=== PATIENT | male | born 1950 | race Caucasian/White ===

== ENCOUNTER 2018-10-16 12:17 | Outpatient (REF) | payer MEDICARE, SELFPAY ==
[2018-10-16 19:48] LABS: HGB 15.1 g/dL (13.5-17.5); Mean Corp. HGB Concentration 32.8 g/dL (32.0-36.0); Mean Corpuscular Hemoglobin 31.2 pg (27.0-33.0); Mean Platelet Volume 12.6 fL (8.0-11.0); Platelet Count 110 x1000/uL (130-400); RBC 4.84 m/cumm (4.50-6.00); RBC Distribution Width 13.6 % (11.8-14.1); White Blood Cell Count 6.09 k/cumm (4.4-10.8)
[2018-10-16 20:39] LABS: Cholesterol 250 mg/dL (50-200); HDL Cholesterol 86 mg/dL (40-60); LDL CHOLESTEROL 141 mg/dL (<100); Triglyceride 74 mg/dL (30-150)
[2018-10-18 09:14] LABS: PSA, Screening 1.5 ng/ml (0-4.5)
== END 2018-10-16 12:37 ==
LOC: NCHCN 12:17
PROVIDERS: PCP Family Medicine; Visit Provider Family Medicine
DX: E78.5 Hyperlipidemia, unspecified (principal); D69.6 Thrombocytopenia, unspecified; Z12.5 Encounter for screening for malignant neoplasm of prostate
CPT/HCPCS: 80061; 83721; 84153; 85027

== ENCOUNTER → 2019-04-14 09:28 | Outpatient (BNVA) | payer MEDICARE, SELFPAY | PROVIDERS: PCP Family Medicine; Referring Provider Family Medicine; Visit Provider Physical Therapy Assistant | DX: Z12.11 Encounter for screening for malignant neoplasm of colon (principal) ==

== ENCOUNTER 2019-05-15 12:11 | Day surgery (SDC) | payer MEDICARE, SELFPAY ==
[2019-05-15 12:26] VITALS: BP 143/93; PULSE 75; RESP 16; TEMP 36.8; O2SAT 99
[2019-05-15] MEDS: Lactated Ringers 1,000 ML 80 ML IV (12:35)
--- NOTE | 2019-05-15 13:07 | W.PM.DSUDISC ---
Discharge Plan Disposition Patient Disposition: HOME Condition: Good Discharge Details Reason For Visit: Colonoscopy Attending Provider: Deirdre Parod Primary Care Provider: Elfego Griggs Home Meds and New Rx's Prescriptions: Continued ibuprofen 200 MG tablet 400 mg PO PRNRF: 0 Discharge Instructions Additional Instructions: Findings: Two small polyps were removed. My office will contact you with biopsy results. Follow up: Plan for a colonoscopy in 5 years. Please call if you develop: fevers >101.5 Nausea or Vomiting Abdominal pain that is not transient DAY SURGERY UNIT POST COLONOSCOPY INSTRUCTIONS 1. Because there will be medication in your system for the next 24 hours, you may feel a little sleepy. Your coordination will be affected. Therefore: a. Do not drive or operate dangerous equipment for 24 hours. b. Do not drink alcohol beverages for 24 hours (not even beer). c. Plan to go home and rest for the day. 2. Generally there are no restrictions on your activity after a day or so has gone by, but you may feel a bit fatigued for a few days. 3 After you arrive home you may have a light meal and return to a normal diet as you can tolerate it without feeling sick to your stomach. 4. After surgery, you may feel pain or discomfort. This should be only transient, but if it persists please contact your doctor. 5. If there are any questions regarding the findings of your procedure, please feel free to contact your doctor. 6. If you are unable to contact your doctor with a problem, contact the hospital at [phone]. 7. Continue all your regular medications unless directed otherwise. I understand the above instructions and have no questions. Signature of Patient or Responsible Adult Escort Date/Time Name of Responsible Adult Escort Signature of Nurse Date/Time Activity:: Activity as Tolerated Diet:: As Tolerated Discharge Orders Discharge Orders: Discharge Order (Routine); Ordered 05/15/19 Ordered By: Deirdre Pardo DS: Diagnosis Discharge Diagnosis (1) Colon polyps: Status: Acute
--- NOTE | 2019-05-15 13:37 | BOWEL_PTH ---
PATIENT: Feliciano Acosta LOC: [facility] U#:[id number] AGE/SX: 69/M ROOM: RE05/15/[address]: Deirdre Pardo MD : [id number] BED: DIS: 05/15/2019 SPEC #: [id number] RECD: 05/15/19 17:56 STATUS: ALVARO RE #: [id number] HARRY: 05/15/19 13:[address]: Deirdre Pardo DEPT: Surgical Specimen RECD BY: Emely Piper ENTERED: 05/15/19 17:57 SP TYPE: Bowel OTHR DR: Elfego Griggs Tissues: 1 - BIOPSY BOWEL 2 - BIOPSY BOWEL Procedures: GROSS AND MICRO LEVEL 4 Comments: [id number]
[2019-05-15 14:41] VITALS: BP 113/67; PULSE 56; RESP 16; TEMP 36.6; O2SAT 97
--- NOTE | 2019-05-16 10:17 | COLE_ITS ---
DATE OF PROCEDURE: May 15, 2019 PREOPERATIVE DIAGNOSIS: History of colon polyps. POSTOPERATIVE DIAGNOSIS: Colon polyps x2. PROCEDURE: Colonoscopy with polypectomy. SURGEON: Deirdre Pardo M.D. ANESTHESIA: General. INDICATIONS: This is a 69-year-old man who presents for routine colon evaluation. His last procedur e in 2006 showed a polyp. His history is also significant for a sigmoid resection for a perforated d iverticulitis with a colostomy and a subsequent takedown. He denies a family history of colon cancer . PROCEDURE: He was placed in the left [place] position. Propofol was titrated to sedation. Digital rec marifer examination revealed no abnormalities. The scope was advanced to the cecum without difficulty. The ileocecal valve and appendiceal orifice were clearly identified. His prep was good. The scope w as slowly withdrawn with no abnormalities seen within the ascending or transverse colon. At the sple shruthi flexure there was a < 1 cm polyp that was removed with snare polypectomy and retrieved for pathol ogy. No abnormalities were noted throughout the descending colon. At the anastomosis of the sigmoid colon with the rectum there was a < 1 cm polyp located along the anastomotic area. This was removed with snare polypectomy and retrieved. This was labeled as a sigmoid polyp. The rectum was normal, including on retroflex view. He tolerated the procedure well and was stable to recovery. He will need a follow-up colonoscopy again in 5 years. cc: Elfego Griggs M.D.
== END 2019-05-15 14:50 | disposition home or self-care (01) ==
PROVIDERS: PCP Family Medicine; Visit Provider Surgery
PROC: 0DJD8ZZ Inspection of Lower Intestinal Tract, Via Natural or Artificial Opening Endoscopic (ICD-10-PCS; CPT 45378; principal; 2019-05-15 12:45)
DX: Z12.11 Encounter for screening for malignant neoplasm of colon (principal); D12.3 Benign neoplasm of transverse colon; D12.5 Benign neoplasm of sigmoid colon; Z86.010 Personal history of colon polyps; Z90.49 Acquired absence of other specified parts of digestive tract
CPT/HCPCS: 45385; 88305

== ENCOUNTER 2020-08-16 22:09 | Outpatient (REF) | payer MEDICARE, SELFPAY ==
[2020-08-16 19:17] LABS: Calculated LDL 141 mg/dL (<100); Cholesterol 244 mg/dL (<200); HDL Cholesterol 83 mg/dL (40-60); Triglyceride 101 mg/dL (<150)
[2020-08-17 18:02] LABS: PSA, Diagnostic 1.6 ng/mL (0.0-4.5)
== END 2020-08-16 22:29 ==
LOC: NCHCN 22:09
PROVIDERS: PCP Family Medicine; Visit Provider Family Medicine
DX: E78.5 Hyperlipidemia, unspecified (principal); Z12.9 Encounter for screening for malignant neoplasm, site unspecified; E04.1 Nontoxic single thyroid nodule
CPT/HCPCS: 80061; 84153

== ENCOUNTER 2020-09-07 01:15 | Outpatient (CLI) | payer MEDICARE, SELFPAY ==
--- NOTE | 2020-09-07 | DI.US_ITS ---
EXAM: US THYROID CLINICAL HISTORY: F/U THYROID NODULE,E04.1. TECHNIQUE: Ultrasound thyroid performed using standard protocol. COMPARISON: US USTHY from 12/16/2014 FINDINGS: This study is compared to prior outside study performed December 2014 RIGHT THYROID LOBE: Measures 2 centimetres AP by 2.3 centimeters wide by 6.3 centimeters craniocaudal length. At the mid aspect of the right lobe there is a 10 x 6 x 7 millimeter nodule which is somewhat spongif orm in appearance with well-defined margins and 3 tiny punctate echogenic foci therein. The longitud inal measurement is slightly increased in size from the prior outside 2015 study. Second finding in the right lobe is located more medially at the junction with the isthmus and is a 6 x 3 x 4 millimeters solid nodule which is relatively hypoechoic compared to the surrounding parenchy ma, with well-defined margins and no echogenic foci is a therein.. This is slightly increased in siz e from the study of 5 years ago. ISTHMUS: Measures 3 millimeter thick. No significant nodules. LEFT THYROID LOBE: Measures 1.8 cm AP by 3 centimeters wide by 5.9 cm cephalocaudal. Contains 2 chung cent midpole level nodules. More superior of these 2 solid nodules measures 10 x 8 x 9 millimeters. Is hypoechoic relative to good rrounding parenchyma and exhibits smooth borders and no internal echogenic foci. Exhibits similar ap pearance and size compared to the 2014 study. The more inferior of these 2 adjacent solid left lobe nodules is well-defined and relatively isoechoi c compared to the surrounding parenchyma and contains multiple punctate echogenic foci therein. It m easures 15 x 8 x 16 millimeters, minimally increased in size from prior outside readings of 2014. IMPRESSION: Bilateral solid nodules as described above which exhibit mild increased size when compared to the out side study of December 2014 (over 5 years ago). All of the nodules are in the TR4 category with an element of suspicion, however, exhibit only minima l change when compared to 5 years ago. I recommend repeat ultrasound in 6 months at this department using the present study and measurements as a new baseline. DATA REPOSITORY:
== END 2020-09-07 01:35 ==
PROVIDERS: PCP Family Medicine; Visit Provider Family Medicine
DX: E04.2 Nontoxic multinodular goiter (principal)
CPT/HCPCS: 76536

== ENCOUNTER 2021-11-08 18:46 | Outpatient (REF) | payer MEDICARE, SELFPAY ==
[2021-11-08 20:47] LABS: ALT 33 U/L (16-63); AST 27 U/L (15-37); Albumin 4.7 g/dL (3.4-5.0); Alkaline Phosphatase 56 U/L (46-116); Anion Gap 9.1 mmol/L (3-11); BUN 14 mg/dL (7-18); Bilirubin, Total 0.9 mg/dL (0.2-1.0); CO2 27.9 mmol/L (21.0-32.0); Calcium 9.4 mg/dL (8.5-10.1); Calculated LDL 134 mg/dL (<100); Chloride 101 mmol/L (98-107); Cholesterol 241 mg/dL (<200); Glucose 86 mg/dL (74-106); HDL Cholesterol 87 mg/dL (40-60); Magnesium 2.4 mg/dL (1.8-2.4); Potassium 3.9 mmol/L (3.5-5.1); Sodium 138 mmol/L (136-145); TSH (W/Ref FT4) 0.97 uIU/mL (0.36-3.74); Total Protein 8.2 g/dL (6.4-8.2); Triglyceride 102 mg/dL (<150); Vitamin B12 304 pg/mL (193-986)
[2021-11-09 18:26] LABS: PSA, Screening 2.4 ng/mL (0.0-4.5)
[2021-11-10 10:09] LABS: Hepatitis C Ab w Rflx HCV PCR Negative (Negative)
[2021-11-10 10:18] LABS: HIV-1/2 Ag & Ab Screen Negative (Negative)
== END 2021-11-08 18:47 | disposition home or self-care (01) ==
LOC: NCHCN 18:46
PROVIDERS: PCP Family Medicine; Visit Provider Family Medicine
DX: D69.6 Thrombocytopenia, unspecified (principal); R25.2 Cramp and spasm; Z11.4 Encounter for screening for human immunodeficiency virus [HIV]; Z12.5 Encounter for screening for malignant neoplasm of prostate; Z80.42 Family history of malignant neoplasm of prostate; Z11.59 Encounter for screening for other viral diseases; E78.5 Hyperlipidemia, unspecified
CPT/HCPCS: 80053; 80061; 84153; 85027; 86803; 87389; 82607; 83735; 84443

== ENCOUNTER 2021-11-17 18:11 | Outpatient (REF) | payer MEDICARE, SELFPAY ==
[2021-11-17 14:20] LABS: HCT 45.3 % (40.0-50.0); MCH 31.3 pg (27.0-33.0); MCHC 33.1 % (32.0-36.0); MCV 94.4 fL (80-95); RDW 13.2 % (11.8-14.1); RDW-SD 45.8 fL; WBC 4.28 10^3/uL (4.4-10.8)
[2021-11-17 14:23] LABS: Platelet Count 113 10^3/uL (130-400)
== END 2021-11-17 18:12 | disposition home or self-care (01) ==
LOC: NCHCN 18:11
PROVIDERS: PCP Family Medicine; Visit Provider Family Medicine
DX: D69.6 Thrombocytopenia, unspecified (principal)
CPT/HCPCS: 85027

== ENCOUNTER 2021-12-01 11:02 | Inpatient (IN) | payer MEDICARE, SELFPAY ==
[2021-12-01 11:19] VITALS: BP 145/88; PULSE 68; RESP 16; TEMP 36; O2SAT 99
[2021-12-01 11:30] VITALS: BP 163/91; PULSE 61
[2021-12-01 11:36] LABS: Bilirubin Negative (Negative); Blood Small (Negative); Clarity Clear (Clear); Glucose Negative (Negative); Ketones Negative (Negative); Leukocyte Esterase Negative (Negative); Nitrite Negative (Negative); Urobilinogen 0.2 EU/dL (Up TO 0.2); pH 7.5 (5-8)
[2021-12-01 11:45] LABS: Bacteria Rare HPF (Negative); C & S Indicated? No; Casts Negative LPF (Negative); Crystals Negative HPF (Negative); Epithelial Cells Rare HPF (Negative); Mucus Negative (Negative); WBC 0-2 HPF (0-5)
--- NOTE | 2021-12-01 11:45 | DI.CT_ITS ---
Exam(s) CT ABDOMEN PELVIS WO EXAM: CT ABDOMEN PELVIS WO CLINICAL HISTORY: pain rt flank. TECHNIQUE: Imaging Protocol: Axial computed tomography images with coronal and sagittal reformatted images were created and reviewed. COMPARISON: CT ABD PELVIS WITH CONTRAST from 03/07/2016 FINDINGS: The examination is limited due to patient motion artifact. ABDOMEN: Lung Bases: Normal where visualized. Liver: Normal density. No measurable mass. Gallbladder and biliary tract: No radiodense calculus or biliary ductal dilation. Pancreas: Normal density, no abnormal calcifications or inflammatory process. Spleen: Multiple calcifications are again seen in the spleen consistent with prior granulomatous dise ase. Kidneys: Normal size, contour and axis.There are 2 punctate nonobstructing stones in the left kidney. There is right nephrolithiasis. There is a 6 mm stone at the right ureteral vesicular junction cau sing moderate hydronephrosis. No masses seen. Adrenal glands: There is a stable 1.2 cm nodule in the left adrenal gland. The right adrenal gland i s unremarkable. Lymph nodes: Within normal limits. Abdominal Aorta: Abdominal portion non-dilated. Atherosclerosis is present. PELVIS: Bladder:Symmetric distention, no gross wall thickening. Bowel: No obstruction or bowel wall thickening. Appendix is unremarkable. Postsurgical changes are s een in the sigmoid colon. Peritoneal cavity: No ascites, collection or mesenteric inflammatory response. No free air. Reproductive organs: There is mild enlargement of the prostate gland. Bones: Within normal limits. Soft Tissues: Within normal limits. IMPRESSION: 1. 6 mm right UVJ stone causing moderate hydronephrosis. 2. Bilateral nephrolithiasis. 3. Results of this exam have been verbally communicated with provider. RADIATION DOSE DELIVERED: 811.69mGy.cm Total DLP DATA REPOSITORY: All CT scans at this facility are submitted to the National Radiology Data Registry (NRDR) Dose Index Registry (DIR) with the [employer] (ACR). RADIATION OPTIMIZATION: All CT scans at this facility use at least one of these dose optimization te chniques: automated exposure control; mA and/or kV adjustment per patient size (includes targeted exa ms where dose is matched to clinical indication); or iterative reconstruction.
[2021-12-01 11:55] LABS: Abs Immature Grans 0.05 10^3/uL (0.0-0.06); Absolute Lymphocyte Count 1.16 10^3/uL (1.2-3.4); Basophils % 0.2; Eosinophils % 0.2; HCT 43.9 % (40.0-50.0); HGB 14.7 g/dL (13.5-17.5); Immature Grans % 0.4; Lymphocytes % 9.4; MCH 31.1 pg (27.0-33.0); MCHC 33.5 % (32.0-36.0); MCV 92.8 fL (80-95); Monocytes % 6.8; Nucleated RBC 0 %; RBC 4.73 10^6/uL (4.36-5.78); RDW 13.2 % (11.8-14.1); RDW-SD 45.2 fL; WBC 12.29 10^3/uL (4.4-10.8)
[2021-12-01 12:01] LABS: Absolute Basophil Count 0.02 10^3/uL (0.0-0.2); Absolute Eosinophil Count 0.02 10^3/uL (0.0-0.7); Absolute Monocyte Count 0.84 10^3/uL (0.1-0.8)
[2021-12-01 12:04] LABS: Diff Comment Diff Reviewed; RBC Morphology Normal
[2021-12-01] MEDS: HYDROmorphone 2 MG/ML VIAL 1 MG IVP (12:07)
[2021-12-01] MEDS: Ketorolac 15 MG/ML VIAL IVP ×3 (12:08→23:35)
[2021-12-01] MEDS: Lactated Ringers 1,000 ML 150 ML IV (12:11)
[2021-12-01 12:16] VITALS: BP 132/78; PULSE 56; O2SAT 98
--- NOTE | 2021-12-01 12:21 | ED.GENADUL_ITS ---
Discharge Plan Disposition Patient Disposition: [facility] INPATIENT Condition: Serious Discharge Details Clinical Impression: Ureterolithiasis Primary Care Provider: Elfego Griggs ED Provider: Dhaval Almodovar Home Meds and New Rx's Prescriptions: No Action ibuprofen 200 MG tablet 400 mg PO QID PRN PRN0RF oxycodone 5 mg tablet 5 mg PO .Q4HRS PRN0RF Label Comments: TAKE 1 TABLET BY MOUTH EVERY 4 HOURS NEEDED FOR PAIN Medical Decision Making 71-year-old male with recently diagnosed right UVJ stone seen on CT scan 11/25/2021 at outside hospital, presenting with severe sudden onset right flank pain since early this morning. Patient is afebrile and hemodynamic stable. High concern for persistent acting ureteral lithiasis. Plan to obtain CT of the abdomen and pelvis. I obtained and reviewed outside hospital records including radiology interpretation of CT, noncontrast, abdomen pelvis from 11/23/2021 that revealed moderate right hydroureteronephrosis secondary to an obstructing 5 mm calculus at the right UVJ. Right perinephric stranding, which can be seen with forniceal rupture as well as infection. Please correlate. Patient was given Dilaudid 1 mg IV and Toradol 15 mg IV for pain. Patient was reassessed and pain significantly improved. Labs were reviewed: Chronic anemia noted, leukocytosis noted. Urinalysis is not consistent with septic stone. CT of the abdomen pelvis was interpreted by radiology: Right UVJ 6 mm obstructing stone. I consulted Dr. Crum, discussed ED presentation course including diagnostics and prior diagnostics from outside hospital ED visit, he recommends admission for pain control and stone removal tomorrow. All results were discussed with the patient and his and reviewed plan which he is in agreement with. Bridging orders placed at the request of Dr. Crum. Care transitioned to time of admission. HPI General Mode of arrival: ambulatory . Date/Time Provider Initiated Documentation: 12/01/21 11:45 . Limitations to Documentation: no limitations . Information obtained by: patient and family . HPI Narrative: 71-year-old male presents with chief complaint of right flank pain. Pain started this morning around 245 and has persisted. Pain is severe and constant. Pain feels sharp. He has associated nausea and vomiting today. No dysuria or hematuria. No fever patient was seen at outside hospital in [facility] on 11/23/2021 for sudden severe onset right flank pain. He had CT imaging that r evealed 5 mm renal stone at the UVJ. He was discharged and has had waxing and waning pain since discharge. He did have a few days with no pain. This morning pain returned worse than prior. Related Data Home Medications Medication Instructions Recorded Confirmed ibuprofen 200 mg tablet 400 mg PO QID PRN PRN 03/07/16 12/01/21 oxycodone 5 mg tablet 5 mg PO .Q4HRS PRN 12/01/21 12/01/21 Allergies Allergy/AdvReac Type Severity Reaction Status Date / Time wheat Allergy Severe Anaphylaxsi Unverified 12/01/21 11:29 s Penicillins Allergy Unknown Hives Unverified 12/01/21 11:29 gluten Allergy Anaphylaxsi Unverified 12/01/21 11:29 s General Stated Complaint: FlankPain ERNIE: 3 Review of Systems All systems reviewed & are unremarkable except as noted in HPI and below Constitutional Constitutional: Denies fever(s) Gastrointestinal Gastrointestinal: Reports as per HPI PFSH All Active Problems (Updated 12/01/21 @ 14:22 by Dhaval Almodovar MD) Ureterolithiasis (Acute) Colon polyps (Acute) Medical History Cervical arthritis Diverticulitis Surgical History History of colostomy reversal Colostomy take down 2006 History of fusion of cervical spine Hx of colectomy Sigmoid colectomy with Yolande's Pouch Hx of colonoscopy 05/15/19 Social History Smoking/Tobacco Use Status: Former Tobacco Use Smoking risk assessment performed?: Yes Alcohol Intake: current Alcohol Intake frequency: a few times a week Drug use: Never Substance use type: marijuana Details: Edible marijuana for pain 10 days ago alchol 3 days ago, couple beers Do you feel safe at home: Yes Do you feel safe in your relationship?: Yes Exam Const General: cooperative and uncomfortable Nutritional Appearance: average body habitus Orientation: alert and awake HENMT Mouth: moist mucous membranes Eyes Conjunctivae: normal conjunctivae Sclera: normal sclerae Resp Auscultation: clear to auscultation bilaterally, no rales, no rhonchi and no wheezes Cardio Rate: regular rate and not tachycardic Rhythm: regular rhythm GI Palpation: soft, not firm, no guarding, no masses, not rigid and tender other (Right flank); Negative for with no rebound tenderness Back/Spine/Pelvis Back: No erythema and No warmth Skin General skin exam: no rashes or lesions noted Neuro General: patient alert, patient awake, patient oriented x3 and tone normal Extrem General: no edema Psych Appearance: grossly normal Mental Status: mental status grossly normal Speech and Movement: speech and movement normal Course Vital Signs Vital signs: Vital Signs Temperature 36 C L 12/01/21 11:19 Pulse 68 12/01/21 11:19 Respiratory Rate 16 12/01/21 11:19 Blood Pressure 145/88 H 12/01/21 11:19 Pulse Oximetry 99 12/01/21 11:19 Temperature 36 C L 12/01/21 11:19 Temperature Source Skin 12/01/21 11:19 Pulse 68 12/01/21 11:19 Respiratory Rate 16 12/01/21 11:19 Respiratory Effort 12/01/21 11:19 Blood Pressure 145/88 H 12/01/21 11:19 Pulse Oximetry 99 12/01/21 11:19 Oxygen Delivery Method Room Air 12/01/21 11:19 Oxygen Flow Rate 0 12/01/21 11:19 Pain Level 10 12/01/21 12:07 Lab/Test Results Lab/Test Results: Laboratory Tests Range/Units 12/01/21 12/01/21 11:30 11:35 WBC (4.4-10.8) 10^3/uL 12.29 H RBC (4.36-5.78) 10^6/uL 4.73 Hgb (13.5-17.5) g/dL 14.7 Hct (40.0-50.0) % 43.9 MCV (80-95) fL 92.8 MCH (27.0-33.0) pg 31.1 MCHC (32.0-36.0) % 33.5 RDW (11.8-14.1) % 13.2 Plt Count (130-400) 10^3/uL MPV (8.0-11.0) fL Immature Gran % 0.4 Neutrophils % 83.0 Lymphocytes % 9.4 Monocytes % 6.8 Eosinophils % 0.2 Basophils % 0.2 Nucleated RBC % % 0 Absolute Neutrophils (1.2-6.7) 10^3/uL 10.20 H Absolute Lymphocytes (1.2-3.4) 10^3/uL 1.16 L Absolute Monocytes (0.1-0.8) 10^3/uL 0.84 H Absolute Eosinophils (0.0-0.7) 10^3/uL 0.02 Absolute Basophils (0.0-0.2) 10^3/uL 0.02 RBC Morphology Normal Urine Color (Yellow) Yellow Urine Clarity (Clear) Clear Urine pH (5-8) 7.5 Ur Specific [place] (1.005-1.025) 1.020 Urine Protein (Negative) mg/dL Trace H Urine Ketones (Negative) mg/dL Negative Urine Blood (Negative) Small H Urine Nitrite (Negative) Negative Urine Bilirubin (Negative) Negative Urine Urobilinogen (Up TO 0.2) EU/dL 0.2 Ur Leukocyte Esterase (Negative) Negative Urine RBC (0-2) HPF 10-20 H Urine WBC (0-5) HPF 0-2 Ur Epithelial Cells (Negative) HPF Rare Urine Crystals (Negative) HPF Negative Urine Bacteria (Negative) HPF Rare Urine Casts (Negative) LPF Negative Urine Mucus (Negative) Negative Ur Culture Indicated? No Urine Glucose (Negative) mg/dL Negative
[2021-12-01 12:25] LABS: ALT 31 U/L (16-63); AST 23 U/L (15-37); Albumin 4.2 g/dL (3.4-5.0); Alkaline Phosphatase 60 U/L (46-116); BUN 23 mg/dL (7-18); Bilirubin, Total 0.6 mg/dL (0.2-1.0); CREATININE 1.4 mg/dL (0.70-1.30); Calcium 8.5 mg/dL (8.5-10.1); Chloride 102 mmol/L (98-107); Estimated GFR 50.25 (mL/min/1.73m2); Glucose 124 mg/dL (74-106); Sodium 137 mmol/L (136-145); Total Protein 7.6 g/dL (6.4-8.2)
[2021-12-01] MEDS: Tamsulosin 0.4 MG CAPCR PO (13:59)
[2021-12-01 14:37] LABS: Source Nasal/Nares
[2021-12-01 15:50] VITALS: BP 132/80; PULSE 58; RESP 18; TEMP 36.3; O2SAT 96
--- NOTE | 2021-12-01 16:32 | HPE_ITS ---
Date of service: 12/01/21 Time of Service: 16:32 Assessment and Plan Assessment and plan (1) Ureterolithiasis: Status: Acute Assessment and plan: Since he has failed out therapy, we will admit him to the hospital for pain control. We will plan on taking him to the operating room tomorrow (assuming he has not passed his stone). We will plan on ureteroscopic stone manipulation. We discussed potential risks including bleeding and infection. We also discussed the possibility that we may not be able to access his stone initially due to ureteral edema. We may need to place a ureteral stent and offer a staged procedure. History of Present Illness History of Present Illness Chief Complaint: Right ureteral stone Narrative: This is a 71-year-old gentleman who was visiting his daughter in [place] about 2 weeks ago when he developed an acute onset of right flank pain. He had nausea and vomiting but no fever or chills. He was seen at an emergency room where he underwent a CT scan. He was diagnosed as having a right distal ureteral stone. Within 2 or 3 days, the pain resolved. He did not pass the stone as far as he is aware. He then returned back here and did well until early this morning when he developed another acute onset of right flank pain. He again had nausea and vomiting. He still had no fever or chills. He presented to our emergency department where he was found to have persistence of his right distal ureteral stone and right hydronephrosis and hydroureter. He has no prior stone history. He has no history of gout or hyperparathyroidism. He has not had any previous urologic surgery. Because he failed outpatient management, he is admitted to the hospital Review of Systems Narrative: No fevers or chills Allergic rhinitis. No vision change or dysphasia No diabetes or thyroid No shortness of breath, cough or hemoptysis No chest pain or palpitations No hepatitis, ulcers, jaundice, diarrhea or constipation No seizures, strokes or peripheral neuropathy Chronic anemia. No bleeding disorders No gout PFSH All Active Problems (Updated 12/01/21 @ 14:22 by Dhaval Almodovar MD) Ureterolithiasis (Acute) Colon polyps (Acute) Medical History Cervical arthritis Diverticulitis Surgical History History of colostomy reversal Colostomy take down 2006 History of fusion of cervical spine Hx of colectomy Sigmoid colectomy with Yolande's Pouch Hx of colonoscopy 05/15/19 Social History Smoking/Tobacco Use Status: Former Tobacco Use Smoking risk assessment performed?: Yes Alcohol Intake: current Alcohol Intake frequency: a few times a week Drug use: Never Substance use type: marijuana Details: Edible marijuana for pain 10 days ago alchol 3 days ago, couple beers Do you feel safe at home: Yes Do you feel safe in your relationship?: Yes Meds Allergies and Home Medications Allergies Allergy/AdvReac Type Severity Reaction Status Date / Time wheat Allergy Severe Anaphylaxsi Unverified 12/01/21 11:29 s Penicillins Allergy Unknown Hives Unverified 12/01/21 11:29 gluten Allergy Anaphylaxsi Unverified 12/01/21 11:29 s Home Medications Medication Instructions Recorded Confirmed Type ibuprofen 200 mg tablet 400 mg PO QID PRN PRN 03/07/16 12/01/21 History oxycodone 5 mg tablet 5 mg PO .Q4HRS PRN 12/01/21 12/01/21 History Exam Const General: cooperative and healthy appearing Neck Neck: supple Resp Effort & Inspection: normal respiratory effort Auscultation: clear to auscultation bilaterally Cardio Rate: regular rate Rhythm: regular rhythm GI Palpation: soft and no guarding Neuro General: patient alert, patient awake and patient oriented x3 Results Imaging Imaging Studies: I reviewed CT scan on the PACS system. There is a 6 mm stone at the right distal ureter. There is hydronephrosis and hydroureter. Labs Result diagrams: 12/01/21 11:35 12/01/21 11:35 Labs: Laboratory Results - last 24 hr 12/01/21 12/01/21 12/01/21 11:30 11:35 11:35 WBC 12.29 H RBC 4.73 Hgb 14.7 Hct 43.9 MCV 92.8 MCH 31.1 MCHC 33.5 RDW 13.2 Plt Count MPV Immature Gran % 0.4 Neutrophils % 83.0 Lymphocytes % 9.4 Monocytes % 6.8 Eosinophils % 0.2 Basophils % 0.2 Nucleated RBC % 0 Absolute Neutrophils 10.20 H Absolute Lymphocytes 1.16 L Absolute Monocytes 0.84 H Absolute Eosinophils 0.02 Absolute Basophils 0.02 RBC Morphology Normal Sodium 137 Potassium 4.0 Chloride 102 Carbon Dioxide 23.0 Anion Gap 12.0 H BUN 23 H Creatinine 1.4 H Estimated GFR/1.73 m2 50.25 Glucose 124 H Calcium 8.5 Total Bilirubin 0.6 AST 23 ALT 31 Alkaline Phosphatase 60 Total Protein 7.6 Albumin 4.2 Urine Color Yellow Urine Clarity Clear Urine pH 7.5 Ur Specific [place] 1.020 Urine Protein Trace H Urine Ketones Negative Urine Blood Small H Urine Nitrite Negative Urine Bilirubin Negative Urine Urobilinogen 0.2 Ur Leukocyte Esterase Negative Urine RBC 10-20 H Urine WBC 0-2 Ur Epithelial Cells Rare Urine Crystals Negative Urine Bacteria Rare Urine Casts Negative Urine Mucus Negative Ur Culture Indicated? No Urine Glucose Negative COVID-19 Source 12/01/21 14:30 WBC RBC Hgb Hct MCV MCH MCHC RDW Plt Count MPV Immature Gran % Neutrophils % Lymphocytes % Monocytes % Eosinophils % Basophils % Nucleated RBC % Absolute Neutrophils Absolute Lymphocytes Absolute Monocytes Absolute Eosinophils Absolute Basophils RBC Morphology Sodium Potassium Chloride Carbon Dioxide Anion Gap BUN Creatinine Estimated GFR/1.73 m2 Glucose Calcium Total Bilirubin AST ALT Alkaline Phosphatase Total Protein Albumin Urine Color Urine Clarity Urine pH Ur Specific [place] Urine Protein Urine Ketones Urine Blood Urine Nitrite Urine Bilirubin Urine Urobilinogen Ur Leukocyte Esterase Urine RBC Urine WBC Ur Epithelial Cells Urine Crystals Urine Bacteria Urine Casts Urine Mucus Ur Culture Indicated? Urine Glucose COVID-19 Source Nasal/Nares Last Vital Signs Temp 36.3 C L 12/01/21 15:50 Pulse 58 L 12/01/21 15:50 Resp 18 12/01/21 15:50 BP 132/80 12/01/21 15:50 Pulse Ox 96 12/01/21 15:50
[2021-12-01] MEDS: Lactated Ringers 1,000 ML 125 ML IV (17:17)
[2021-12-01] MEDS: HYDROmorphone 2 MG/ML SYR IVP (17:24)
[2021-12-01] MEDS: Normal Saline Flush 10 ML SYR IVP (17:25)
[2021-12-01 19:37] VITALS: BP 122/50; PULSE 57; RESP 18; TEMP 34.9; O2SAT 99
[2021-12-01] MEDS: Docusate Sodium 100 MG CAP PO (20:54)
[2021-12-01] MEDS: Ondansetron 4 MG/2 ML VIAL IVP (20:54)
[2021-12-01 22:02] LABS: COVID-19 PCR Negative (Negative)
[2021-12-01 23:32] VITALS: BP 122/63; PULSE 65; RESP 17; TEMP 36.3; O2SAT 95
[2021-12-02] VITALS (11 sets, daily range): BP systolic 108–158; BP diastolic 60–89; PULSE 51–82; RESP 9–18; TEMP 36–36.8; O2SAT 95–99; BMI 27.1
[2021-12-02] MEDS: Lactated Ringers 1,000 ML 125 ML IV ×2 (00:25→06:50)
[2021-12-02] MEDS: Ketorolac 15 MG/ML VIAL IVP ×2 (05:20→12:44)
--- NOTE | 2021-12-02 06:32 | ANES.PREOP_ITS ---
General Info Date of Service Date Performed: 12/02/21 Height: 5 ft 11 in Weight: 88.451 kg Body Mass Index (BMI): 27.1 Surgical Procedure: Operation Date: 12/02/21 10:10 Proposed Procedure Side Surgeon p Cystoscopy/Laser/Retrograde/Ureteroscopy/Poss. Stent Right Heriberto Crum MD Meds Allergies and Home Medications Allergies Allergy/AdvReac Type Severity Reaction Status Date / Time wheat Allergy Severe Anaphylaxsi Unverified 12/01/21 11:29 s Penicillins Allergy Unknown Hives Unverified 12/01/21 11:29 gluten Allergy Anaphylaxsi Unverified 12/01/21 11:29 s Home Medication Medication Instructions Recorded ibuprofen 200 mg tablet 400 mg PO QID PRN PRN 03/07/16 oxycodone 5 mg tablet 5 mg PO .Q4HRS PRN 12/01/21 Current Visit Medications: Current Medications Generic Name Dose Route Start Last Admin Trade Name Freq PRN Reason Stop Dose Admin Docusate Sodium 100 mg 12/01/21 20:00 12/01/21 20:54 Docusate Sodium 100 Mg Cap PO 100 mg BID VANESSA Administration Hydromorphone HCl 0.5 - 1 mg 12/01/21 16:24 12/01/21 17:24 Hydromorphone 2 Mg/Ml Syr IVP 1 units Q1H PRN Administration Sodium Chloride 500 mls @ 0 mls/hr 12/01/21 11:45 Saline 500ml Bag IV PRN PRN As Directed Sodium Chloride 500 mls @ 0 mls/hr 12/01/21 14:09 Saline 500ml Bag IV PRN PRN As Directed Ringer's Solution 1,000 mls @ 125 mls/hr 12/01/21 16:30 12/02/21 00:25 IV 125 mls/hr INFUSION VANESSA Administration IV Miscellaneous Supplies 1 each 12/01/21 11:45 Iv Access IV DIRECTED VANESSA IV Miscellaneous Supplies 1 each 12/01/21 14:15 Iv Access IV DIRECTED VANESSA Ketorolac Tromethamine 15 mg 12/01/21 18:00 12/02/21 05:20 Ketorolac 15 Mg/Ml Vial IVP 12/06/21 17:59 15 mg Q6H VANESSA Administration Magnesium Hydroxide 30 ml 12/01/21 16:24 Milk Of Magnesia 30 Ml Cup PO DAILY PRN PRN Ondansetron HCl 4 mg 12/01/21 16:24 12/01/21 20:54 Ondansetron 4 Mg/2 Ml Vial IVP 4 mg Q6H PRN PRN Administration Sodium Chloride 0 ml 12/01/21 11:45 12/01/21 17:25 Normal Saline Flush 10 Ml Syr IVP 10 ml PRN PRN Administration Sodium Chloride 0 ml 12/01/21 14:09 Normal Saline Flush 10 Ml Syr IVP PRN PRN PFSH Active Problems Active Problems: Problem Status Onset Code Ureterolithiasis N20.1 Colon polyps K63.5 Medical History Medical History Cervical arthritis Diverticulitis Surgical History Surgical History History of colostomy reversal Colostomy take down 2006 History of fusion of cervical spine Hx of colectomy Sigmoid colectomy with Yolande's Pouch Hx of colonoscopy 05/15/19 Tobacco Smoking/Tobacco Use Status: Former Tobacco Use Alcohol Alcohol Intake: current Alcohol intake frequency: a few times a week Substance Use Substance use: Never Substance use type: marijuana Details: Edible marijuana for pain 10 days ago alchol 3 days ago, couple beers Vital Signs and Lab Results Vital Signs Most Recent Vital Signs in EMR: Most Recent Vital Signs Temp Pulse Resp BP Pulse Ox 36.7 C 73 17 108/60 96 12/02/21 03:05 12/02/21 03:05 12/02/21 03:05 12/02/21 03:05 12/02/21 03:05 Lab Results Result Diagrams: 12/01/21 11:35 12/01/21 11:35 Blood Type / Crossmatch: No Data to Display Complete Blood Count: White Blood Count 12.29 10^3/uL (4.4-10.8) H 12/01/21 11:35 12/01/21 Red Blood Count 4.73 10^6/uL (4.36-5.78) 12/01/21 11:35 12/01/21 Hemoglobin 14.7 g/dL (13.5-17.5) 12/01/21 11:35 12/01/21 Hematocrit 43.9 % (40.0-50.0) 12/01/21 11:35 12/01/21 Platelet Count 10^3/uL (130-400) 12/01/21 11:35 12/01/21 Complete Metabolic Panel: Sodium Level 137 mmol/L (136-145) 12/01/21 11:35 12/01/21 Potassium Level 4.0 mmol/L (3.5-5.1) 12/01/21 11:35 12/01/21 Chloride Level 102 mmol/L (98-107) 12/01/21 11:35 12/01/21 Carbon Dioxide Level 23.0 mmol/L (21.0-32.0) 12/01/21 11:35 12/01/21 Blood Urea Nitrogen 23 mg/dL (7-18) H 12/01/21 11:35 12/01/21 Creatinine 1.4 mg/dL (0.70-1.30) H 12/01/21 11:35 12/01/21 Estimated GFR/1.73 m2 50.25 (mL/min/1.73m2) 12/01/21 11:35 12/01/21 Magnesium Level 2.4 mg/dL (1.8-2.4) 11/08/21 15:30 11/08/21 Calcium Level 8.5 mg/dL (8.5-10.1) 12/01/21 11:35 12/01/21 Albumin 4.2 g/dL (3.4-5.0) 12/01/21 11:35 12/01/21 Glucose Level 124 mg/dL (74-106) H 12/01/21 11:35 12/01/21 Liver Function Panel: Alanine Aminotransferase (ALT/SGPT) 31 U/L (16-63) 12/01/21 11:35 12/01/21 Aspartate Amino Transf (AST/SGOT) 23 U/L (15-37) 12/01/21 11:35 12/01/21 Coagulation Panel: No Data to Display Cardiac Panel: No Data to Display Arterial Blood Gas: No Data to Display Venous Blood Gas: No Data to Display Pancreas Panel: No Data to Display Thyroid Panel: 2 Thyroid Stimulating Hormone (TSH) 0.97 uIU/mL (0.36-3.74) 11/08/21 15:30 11/08/21 Infectious Disease: Coronavirus (COVID-19)(PCR) Negative (Negative) 12/01/21 14:30 12/01/21 Coronavirus 2019 Source Nasal/Nares 12/01/21 14:30 12/01/21 HIV (1&2) Ag and Ab, 4th Generation Negative (Negative) 11/08/21 15:30 11/08/21 Hepatitis C Antibody Negative (Negative) 11/08/21 15:30 11/08/21 Blood Cultures: No Data to Display Toxicology Panel: No Data to Display Anesthesia Assessment and Plan Anesthesia History Personal History: No History of Anesthesia Complications Family History: No Family History of Anesthesia Complications Exercise Tolerance Exercise Tolerance: Metabolic Equivalents>4 Cardiac & Pulmonary Exam Cardiac Exam: Normal S1/S2 Heart Sounds Pulmonary Exam: Clear Bilateral Breath Sounds Implantable Cardiac Device Does patient have a Pacemaker or an ICD?: No Airway Exam Known Difficult Airway: No Mallampati Class: 1 Mouth Opening: Normal (> 3cm) Thyromental Distance: Greater than 3 cm Neck Range of Motion: Full ROM Neck Circumference: Normal Teeth Condition: Normal Dentition ASA Classification ASA Score: ASA 2 Emergency Case?: No NPO Status NPO Status: NPO Clears >2 hours, Solids >8 hours Anesthesia Plan Resuscitation Status: Full Code Anesthesia Technique: General Anesthesia Airway Planned: LMA Monitors Used: Standard Monitors Preoperative Comments:: 71 yo male with ureterolithiasis. admitted for pain control. Sig pmhx: thyroid nodule, former smoker, occ EtOH, cervical arthritis/fusion.
--- NOTE | 2021-12-02 07:01 | W.PM.PROGNOT ---
Date of Service Date of service: 12/02/21 Time of Service: 07:02 Assessment and Plan Assessment and plan (1) Ureterolithiasis: Status: Acute Assessment and plan: His symptoms have improved, but he is still not passed his stone after conservative management for over 2 weeks. We will continue with our were plan for cystoscopy, right retrograde pyelogram, right ureteroscopy and stone manipulation. Subjective Subjective Interval history since last seen: Mr Acosta had a restful night with no pain, nausea or vomiting. He has not passed a stone Exam Narrative Exam Narrative: He looks comfortable. He does not appear septic or toxic. His vital signs are documented elsewhere Objective Last Vital Signs Temp 36.7 C 12/02/21 03:05 Pulse 73 12/02/21 03:05 Resp 17 12/02/21 03:05 BP 108/60 12/02/21 03:05 Pulse Ox 96 12/02/21 03:05 Laboratory Results - last 24 hr 12/01/21 12/01/21 12/01/21 11:30 11:35 11:35 WBC 12.29 H RBC 4.73 Hgb 14.7 Hct 43.9 MCV 92.8 MCH 31.1 MCHC 33.5 RDW 13.2 Plt Count MPV Immature Gran % 0.4 Neutrophils % 83.0 Lymphocytes % 9.4 Monocytes % 6.8 Eosinophils % 0.2 Basophils % 0.2 Nucleated RBC % 0 Absolute Neutrophils 10.20 H Absolute Lymphocytes 1.16 L Absolute Monocytes 0.84 H Absolute Eosinophils 0.02 Absolute Basophils 0.02 RBC Morphology Normal Sodium 137 Potassium 4.0 Chloride 102 Carbon Dioxide 23.0 Anion Gap 12.0 H BUN 23 H Creatinine 1.4 H Estimated GFR/1.73 m2 50.25 Glucose 124 H Calcium 8.5 Total Bilirubin 0.6 AST 23 ALT 31 Alkaline Phosphatase 60 Total Protein 7.6 Albumin 4.2 Urine Color Yellow Urine Clarity Clear Urine pH 7.5 Ur Specific [place] 1.020 Urine Protein Trace H Urine Ketones Negative Urine Blood Small H Urine Nitrite Negative Urine Bilirubin Negative Urine Urobilinogen 0.2 Ur Leukocyte Esterase Negative Urine RBC 10-20 H Urine WBC 0-2 Ur Epithelial Cells Rare Urine Crystals Negative Urine Bacteria Rare Urine Casts Negative Urine Mucus Negative Ur Culture Indicated? No Urine Glucose Negative COVID-19 Source SARS-CoV-2 (PCR) 03/24/22 14:30 WBC RBC Hgb Hct MCV MCH MCHC RDW Plt Count MPV Immature Gran % Neutrophils % Lymphocytes % Monocytes % Eosinophils % Basophils % Nucleated RBC % Absolute Neutrophils Absolute Lymphocytes Absolute Monocytes Absolute Eosinophils Absolute Basophils RBC Morphology Sodium Potassium Chloride Carbon Dioxide Anion Gap BUN Creatinine Estimated GFR/1.73 m2 Glucose Calcium Total Bilirubin AST ALT Alkaline Phosphatase Total Protein Albumin Urine Color Urine Clarity Urine pH Ur Specific [place] Urine Protein Urine Ketones Urine Blood Urine Nitrite Urine Bilirubin Urine Urobilinogen Ur Leukocyte Esterase Urine RBC Urine WBC Ur Epithelial Cells Urine Crystals Urine Bacteria Urine Casts Urine Mucus Ur Culture Indicated? Urine Glucose COVID-19 Source Nasal/Nares SARS-CoV-2 (PCR) Negative
[2021-12-02] MEDS: Docusate Sodium 100 MG CAP PO (08:26)
--- NOTE | 2021-12-02 10:00 | DI.RAD_ITS ---
Exam(s) XR RETROGRADE IN OR EXAM: XR RETROGRADE IN OR CLINICAL HISTORY: Ureterolithiasis TECHNIQUE: 2D and realtime digital imaging was performed. CONTRAST MATERIAL: Refer to procedure report. COMPARISON: No exams were available for comparison FINDINGS: Fluoroscopy was provided for Dr. Crum during the performance of a retrograde evaluation of the josephine l collecting system. Please refer to the procedure report for complete details. Ka,r=2.6031 mGy IMPRESSION: RADIATION DOSE DELIVERED:
[2021-12-02] MEDS: Lactated Ringers 1,000 ML 30 ML IV (10:47)
[2021-12-02] MEDS: GENTAMICIN 120 MG in Normal Saline 100 ML 200 MG IVPB (10:47)
[2021-12-02] MEDS: Lidocaine 2% Jelly 6 ML SYR (11:05)
[2021-12-02] MEDS: Omnipaque 300 MG/ML 50 ML BTL (11:17)
--- NOTE | 2021-12-02 11:38 | W.PM.OP ---
Date of service: 12/02/21 Time of Service: 11:38 Operative Note Operative Note DATE OF PROCEDURE: 12/02/21 PRE-OP DIAGNOSIS: Right ureteral stone POST-OP DIAGNOSIS: same PROCEDURE: Cystoscopy, right retrograde pyelogram, right ureteroscopy with stone extraction SURGEON: Heriberto Crum ANESTHESIA TYPE: General LMA/ETT Refer to Anesthesia Record ESTIMATED BLOOD LOSS: 5 PATHOLOGY: other (stone for chemical analysis) COMPLICATIONS: None Patient was transported to: PACU Patient's condition: stable Implants: None Indications: This is a 71-year-old gentleman who presented to an [facility] about 2 weeks ago with right renal colic. He was found to have a distal right ureteral stone. He was managed as an outpatient, but presented to our emergency department yesterday with escalating pain, nausea and vomiting. He was admitted for pain control. As his stone did not pass with conservative management, he presents now for stone manipulation. T Findings: Right distal ureteral stone Procedure Description: The patient was brought to the operating room on 12/02/2021. He was given preoperative IV antibiotics. After successful induction of general anesthesia, he was placed in the dorsal lithotomy position. His genitalia was prepped and draped. 2% Xylocaine jelly was instilled into the urethra to act as a local anesthetic. A 22 Portuguese rigid cystoscope was passed through the urethra into the bladder. The urethra and bladder were inspected with a 30 degree lens. The pendulous, bulbar and membranous urethra was all appeared normal with no strictures. The prostatic urethra showed some lateral lobe enlargement but no significant median lobe. The bladder neck was entered and the bladder mucosa was inspected. No stone was seen within the bladder lumen. The left ureteral orifice appeared normal but the right orifice was quite edematous. I was then able to maneuver a 5 Portuguese access catheter into the ureteral orifice. I injected contrast into the right ureter under fluoroscopic guidance. This outlined a filling defect in the distal ureter. I then passed a Glidewire through the access catheter, maneuvered the wire above the level of the stone, and removed the cystoscope and access catheter. I then introduced a semirigid ureteroscope through the urethra. I was able to engage the scope into the ureteral orifice and advanced the scope up to the level of the stone. The stone was then grasped and a Mellisa stone basket and removed in its entirety. The stone was sent to pathology for chemical analysis. The scope was reintroduced and no additional stone fragments were identified. We elected not to place a ureteral stent. We removed the ureteroscope and drained the bladder by reintroducing the cystoscope. The patient tolerated the procedure well. He was sent to the recovery room in stable condition.
--- NOTE | 2021-12-02 11:45 | W.ANESPOSTOP ---
Postoperative Evaluation Date, Time and Location Date Performed: 12/02/21 Time Performed: 11:45 Patient Location: PACU Vital Signs Most Recent Imported Vital Signs: Most Recent Vital Signs Temp Pulse Resp BP Pulse Ox 36.4 C L 62 9 L 123/66 96 12/02/21 11:37 12/02/21 11:37 12/02/21 11:37 12/02/21 11:37 12/02/21 11:37 Pain Score Most Recent Pain Score: Most Recent Pain Score Pain Level 0 12/02/21 09:07 Assessment Mental Status: Awake (Alert & Oriented to Patient Baseline) Airway and Respiratory Function: Patent airway with normal (patient baseline) respiratory exam Cardiovascular Function: Hemodynamically Stable Hydration Status: Adequately Hydrated Nausea & Vomiting: No Nausea or Vomiting Pain: Pt. Denies Any Pain Peripheral Nerve Block: Patient did not receive a nerve block
[2021-12-02] MEDS: Normal Saline Flush 10 ML SYR IVP (12:45)
--- NOTE | 2021-12-02 15:21 | DSE_ITS ---
Date of service: 12/02/21 Time of Service: 15:21 DS: Diagnosis Discharge Diagnosis (1) Ureterolithiasis: Status: Acute Discharge Plan Disposition Patient Disposition: HOME Condition: Stable Discharge Details Reason For Visit: Right Ureterolithiasis Admit Date/Time: 12/01/21 14:10 Admit Provider: Heriberto Crum Attending Provider: Heriberto Crum [facility] Hospital Course: The pain and treated with IV hydration and analgesics. We monitored him overnight. He did not pass his stone, so we brought him to the operating room on 12/02/2021 and performed ureteroscopy with stone extraction. Following the procedure, he was able to tolerate oral medications and nutrition. He has been pain-free. He will be discharged to home. Home Meds and New Rx's Prescriptions: New tramadol 50 mg tablet 50 mg PO Q6H PRNQty: 10 0RF No Action ibuprofen 200 MG tablet 400 mg PO QID PRN PRN0RF oxycodone 5 mg tablet 5 mg PO .Q4HRS PRN0RF Label Comments: TAKE 1 TABLET BY MOUTH EVERY 4 HOURS NEEDED FOR PAIN Discharge Instructions Additional Instructions: No need to strain urine My office will contact the patient to arrange a renal ultrasound and a follow-up appointment in 6 to 8 weeks. Script for tramadol sent to [facility] Forms: Nursing Discharge Form Activity:: Activity as Tolerated Equipment/Supplies:: No Equipment Needed Diet:: As Tolerated Discharge Orders Discharge Orders: Discharge Order (Routine); Ordered 12/02/21 Ordered By: Heriberto Crum DS: Summary Time Spent with Patient providing and/or coordinating discharge services: Less than 30 minutes Status at Discharge Functional status at discharge: independent ambulation Overall status at discharge: patient is back to baseline Mental Status: mental status grossly normal Speech and Movement: speech and movement normal Mood: congruent mood Affect: normal affect Exam Narrative Exam Narrative: At the time of discharge, he looks well. His vital signs are documented elsewhere His chest wall motion is normal. He is not short of breath at rest. He is awake, alert and oriented. Psych Mental Status: mental status grossly normal Speech and Movement: speech and movement normal Mood: congruent mood Affect: normal affect DS: Data Vitals/I&O Vitals and I&O: Vital Signs Temperature 36.6 C 12/02/21 13:49 Temperature Source Tympanic 12/02/21 13:49 Pulse 66 12/02/21 13:49 Pulse Rhythm Regular 12/02/21 14:07 Respiratory Rate 16 12/02/21 13:49 Respiratory Effort 12/02/21 14:07 Respiratory Depth Normal 12/02/21 14:07 Respiratory Pattern Normal 12/02/21 14:07 Blood Pressure 151/82 H 12/02/21 13:49 Blood Pressure Mean 86 12/01/21 12:16 Pulse Oximetry 97 12/02/21 13:49 Respiratory End-tidal CO2 28 12/02/21 11:42 Oxygen Delivery Method Room Air 12/02/21 13:49 Oxygen Flow Rate 0 12/02/21 13:49 Pain Level 0 12/02/21 13:49 Intake & Output 12/01/21 12/02/21 12/02/21 23:59 11:59 23:59 Intake Total 572.5 / 572.5 2769.667 / 2809.167 39.5 / 2809.167 Output Total 1085 / 1085 660 / 660 Balance -512.5 / -512.5 2109.667 / 2149.167 39.5 / 2149.167 Weight 88.451 kg Intake: IV 572.5 / 572.5 2769.667 / 2809.167 39.5 / 2809.167 Output: Urine 1075 / 1075 660 / 660 Emesis 10 / 10 Other: Urine Color Yellow Yellow Straw Urine Appearance Cloudy Clear Clear Hematuria Urine Odor Normal Strong Strain Urine Result Negative-No Stones/Gravel Negative-No Stones/Gravel Emesis Description Undigested Food None Voiding Methods Urinal Urinal Data Completed and Pending Labs on day of discharge: Labs from last 24 hours 12/02/21 12/01/21 11:20 14:30 Stone Source Pending Stone Comment Pending Kidney Stone Analysis Pending SARS-CoV-2 (PCR) Negative PFSH All Active Problems Ureterolithiasis (Acute) Colon polyps (Acute) Medical History Cervical arthritis Diverticulitis Surgical History History of colostomy reversal Colostomy take down 2006 History of fusion of cervical spine Hx of colectomy Sigmoid colectomy with Yolande's Pouch Hx of colonoscopy 05/15/19 Social History Smoking/Tobacco Use Status: Former Tobacco Use Smoking risk assessment performed?: Yes Alcohol Intake: current Alcohol Intake frequency: a few times a week Drug use: Never Substance use type: marijuana Details: Edible marijuana for pain 10 days ago alchol 3 days ago, couple beers Do you feel safe at home: Yes Do you feel safe in your relationship?: Yes
--- NOTE | 2021-12-02 15:44 | PDOC.CMDIS ---
- If Service Date Differs Date of service: 12/02/21 Time of Service: 15:44 LACE Index Scoring Tool - Questions: Length of Stay (in days): 1 Acuity (Admit via E.D.?): No E.D. Visits: 0 - Answers: Total Score: 1 Risk of Readmission: Low Risk Care Management Discharge Reason for Hospitalization: Right Ureterolithiasis Discharge Plan: Discharge home via private vehicle with family. Will follow up with Dr. Crum and discharge plan of care as prescribed. Patient/Family Education Needs: Review discharge instructions, limitations and plan to follow up with community providers. ask me three.
[2021-12-05 23:15] LABS: Source: Right Ureter
== END 2021-12-02 16:55 | disposition home or self-care (01) | DRG 694 ==
LOC: ER 15:14 → MS 12-02 00:14
PROVIDERS: Admitting Provider Urology; Emergency Provider Student in an Organized Health Care Education/Training Program; PCP Family Medicine; Visit Provider Urology
PROC: 0TC68ZZ Extirpation of Matter from Right Ureter, Via Natural or Artificial Opening Endoscopic (ICD-10-PCS; CPT 52320; principal; 2021-12-02 10:00)
DX: N20.1 Calculus of ureter (principal); D64.9 Anemia, unspecified; M47.812 Spondylosis without myelopathy or radiculopathy, cervical region; Z87.891 Personal history of nicotine dependence
CPT/HCPCS: 52320; 80053; 87635; 96361; 96374; 96375; 99222; 99232; 99285; U0005; 74176; 74420; 81003; 81015; 82365; 85025; J1100; J1170; J1580; J1885; J2405; Q9967

== ENCOUNTER → 2021-12-02 08:05 | Outpatient (BNVA) | payer MEDICARE, SELFPAY | PROVIDERS: PCP Family Medicine; Referring Provider Family Medicine; Visit Provider Urology | DX: R69 Illness, unspecified (principal) ==

== ENCOUNTER → 2022-03-09 01:47 | Outpatient (CLI) | payer MEDICARE, SELFPAY ==
--- NOTE | 2022-03-09 07:15 | DI.US_ITS ---
Exam(s) US RENAL EXAM: US RENAL CLINICAL HISTORY: r/o hydronephrosis after ureteroscopy,N20.1,URETEROLITHIASIS. TECHNIQUE: Mcghee scale, color and spectral Doppler were used. COMPARISON: CT ABD PELVIS WITH CONTRAST from 03/07/[address] ABDOMEN PELVIS WO from 12/01/2021 FINDINGS: Renal size in cm: Right: 12.9. Left: 13.2. Echogenicity: Normal. Hydronephrosis: No. Cyst or mass: There is a 2.2 x 2 x 3.1 cm simple cyst in the midpole of the right kidney. This was p resent on the postcontrast CT scan of the abdomen and pelvis from 03/07/2016. Nephrolithiasis: No. Other findings: None. Bladder:Normal. Ureteral jets: Right: Visualized and unremarkable. Left: Visualized and unremarkable. Prevoid vol:557 cc Postvoid vol:94 cc Prostate: 54 cc Renal color flow: Symmetric and within normal limits. IMPRESSION: 1. No evidence of hydronephrosis. 2. Stable right renal cyst. 3. Enlarged prostate gland with large postvoid urinary bladder volume. DATA REPOSITORY:
== END ==
PROVIDERS: PCP Family Medicine; Visit Provider Urology
DX: N28.1 Cyst of kidney, acquired (principal); N40.0 Benign prostatic hyperplasia without lower urinary tract symptoms
CPT/HCPCS: 76770

== ENCOUNTER → 2022-03-30 15:00 | Outpatient (BNVA) | payer MEDICARE, SELFPAY | PROVIDERS: PCP Family Medicine; Referring Provider Family Medicine; Visit Provider Nurse Practitioner Gerontology | DX: N40.1 Benign prostatic hyperplasia with lower urinary tract symptoms (principal); N13.8 Other obstructive and reflux uropathy; N20.0 Calculus of kidney; Z80.42 Family history of malignant neoplasm of prostate | CPT/HCPCS: 99215 ==

== ENCOUNTER 2022-04-11 18:56 | Outpatient (REF) | payer MEDICARE, SELFPAY ==
[2022-04-11 19:08] LABS: Anion Gap 6.6 mmol/L (3-11); BUN 11 mg/dL (7-18); CO2 26.4 mmol/L (21.0-32.0); Calcium 8.6 mg/dL (8.5-10.1); Chloride 105 mmol/L (98-107); Glucose 83 mg/dL (74-106); Sodium 138 mmol/L (136-145)
[2022-04-11 20:37] LABS: Calculated LDL 78 mg/dL (<100); Cholesterol 181 mg/dL (<200); HDL Cholesterol 63 mg/dL (40-60); Triglyceride 200 mg/dL (<150)
== END 2022-04-11 18:57 | disposition home or self-care (01) ==
LOC: NCHCN 18:56
PROVIDERS: PCP Family Medicine; Visit Provider Family Medicine
DX: E78.5 Hyperlipidemia, unspecified (principal); N28.9 Disorder of kidney and ureter, unspecified
CPT/HCPCS: 80048; 80061

== ENCOUNTER 2022-06-04 15:16 | Inpatient (IN) | payer MEDICARE, SELFPAY ==
[2022-06-04] VITALS (30 sets, daily range): BP systolic 136–157; BP diastolic 70–95; PULSE 61–73; RESP 18–20; TEMP 36.2–36.8; O2SAT 86–100
--- NOTE | 2022-06-04 15:45 | DI.CT_ITS ---
Exam(s) CT ABDOMEN PELVIS W EXAM: CT ABDOMEN PELVIS W CLINICAL HISTORY: periumbilical pain, hx of sbo. TECHNIQUE: Imaging Protocol: Axial computed tomography images with coronal and sagittal reformatted images were created and reviewed CONTRAST MATERIAL: Intravenous: Omnipaque 350 Contrast volume:100 ml Oral: yes / no COMPARISON: CT CT ABDOMEN PELVIS WO from 12/01/2021 FINDINGS: ABDOMEN: Lung Bases: Normal where visualized. Liver: Normal density. No measurable mass. No portal venous gas. Gallbladder and biliary tract: No radiodense calculus or dilation. Pancreas: Normal density, no abnormal calcifications or inflammatory process. Spleen: Normal. Kidneys: Normal size, contour and axis. Nonobstructing stones upper pole right kidney. Right renal cyst. No obstructive uropathy. No masses seen. Adrenal glands: No masses seen. Abdominal Aorta: Abdominal portion non-dilated. Soft tissues: Midline surgical scar, unremarkable. PELVIS: Bladder: No gross wall thickening. No calculi.No focal mass. Bowel: Dilated loops of small bowel containing feculent appearing material, on the left side of the a bdomen with transition point in the left mid abdomen. No pneumatosis. Bowel mainly decompressed dis marifer to this area.. Sigmoid anastomosis, unremarkable. Appendix normal. Peritoneal cavity: Small amount of mesenteric fluid. No focal abscess. Bones: Within normal limits for age. Reproductive organs: Within normal limits. Lymph nodes: Unremarkable. Impression: Findings consistent with small-bowel obstruction. RADIATION DOSE DELIVERED: 900.88mGy.cm Total DLP DATA REPOSITORY: All CT scans at this facility are submitted to the National Radiology Data Registry (NRDR) Dose Index Registry (DIR) with the [employer] (ACR). RADIATION OPTIMIZATION: All CT scans at this facility use at least one of these dose optimization te chniques: automated exposure control; mA and/or kV adjustment per patient size (includes targeted exa ms where dose is matched to clinical indication); or iterative reconstruction.
--- NOTE | 2022-06-04 15:53 | W.ED.GENAD ---
Discharge Plan Disposition Patient Disposition: [facility] INPATIENT Condition: Serious Discharge Details Chief Complaint: Abd Prob Clinical Impression: Small bowel obstruction Primary Care Provider: Elfego Griggs ED Provider: Marin Pena Home Meds and New Rx's Prescriptions: No Action ibuprofen 200 MG tablet 400 mg PO QID PRN PRN tadalafil 10 mg tablet See Rx Instructions .ROUTE .COMPLEX Label Comments: Take 1/2 to 1 tablet by mouth as needed about 1 hour prior to sexual activity Rx Instructions: Take 1/2 tab to 1 tab 30 minutes prior to intercourse fluocinolone 0.01 % solution See Rx Instructions .ROUTE .COMPLEX Label Comments: Apply 1 a small amount topical once a day as needed to scalp/ear when seborrhea inflamed Rx Instructions: Use 1 small amount with showering as needed for dry scalp Medical Decision Making This is a 72-year-old gentleman who is otherwise fairly healthy, does report complicated diverticulitis in 2007, subsequent partial bowel resection, colostomy and then subsequently reversed who has had several small bowel obstructions in the past. He presents for abdominal pain that began today associate with mild nausea and one episode of vomiting. Clinically he appears well, nontoxic but does appear uncomfortable. He has decreased bowel sounds and periumbilical and lower abdominal discomfort. Examination certainly concerning for small bowel obstruction. Will obtain IV access, give IV fluids, Zofran, morphine and obtain screening laboratory values and then once his renal function has been assessed will obtain CT imaging with IV contrast White blood cell count of 12.64 lactate of 2.2. Initially when I was contacted with a critical value I believe the potassium was 2.2. Because of this I ordered an EKG, troponin, magnesium. I ordered both p.o. and IV potassium. Upon reviewing his laboratory values he had a normal potassium and I canceled the IV potassium, he never received the IV potassium. Electrolytes are unremarkable. Creatinine 1.2 with a GFR of 65.06. Total bili 1.1. Troponin less than 50, COVID-negative. I did make the patient aware of the misunderstanding of the lactate versus potassium. He understands and has no additional questions. Also, he reports his pain is returning, 4 mg of morphine provided. Patient reports nausea has resolved completely and now pain is much improved. CT imaging reveals small bowel obstruction. Discussed findings with patient. He has no nausea or vomiting. Would prefer to hold off on NG tube if at all possible Case discussed with Dr. Prince, surgical team, who is agreeable to admitting the patient and will come to the ER for evaluation. This documentation was generated using [employer] system, please disregard any oddities of phrase or misspellings. Medical Records Medical records reviewed: Yes I reviewed the patient's medical records. Imaging Data Radiologic Study: Attestation: I personally reviewed and interpreted this imaging study as follows: Radiologist's impression: PROCEDURE INFORMATION: Exam: CT Abdomen And Pelvis With Contrast Exam date and time: 06/04/2022 5:04 PM Age: 72 years old Clinical indication: Other: Periumbillical pain, HX of sbo TECHNIQUE: Imaging protocol: Computed tomography of the abdomen and pelvis with contrast. Radiation optimization: All CT scans at this facility use at least one of these dose optimization techniques: automated exposure control; mA and/or kV adjustment per patient size (includes targeted exams where dose is matched to clinical indication); or iterative reconstruction. Contrast material: OMNIPAQUE 350; Contrast volume: 100 ml; Contrast route: INTRAVENOUS (IV); COMPARISON: CT ABDOMEN PELVIS WO 12/01/2021 12:44 PM FINDINGS: Lungs: The visualized lung barone show mild bibasilar atelectasis. Liver: Normal in size. No enhancing liver lesions identified. Gallbladder and bile ducts: No calcified stones. No ductal dilation. Pancreas: Normal in size and homogeneous enhancement. No ductal dilation. Spleen: Normal. No splenomegaly. Adrenal glands: Normal. No mass. Kidneys and ureters: There is no hydronephrosis. In the right kidney, there are multiple nonobstructive calculi as large as 4 mm. Additionally, there is a simple appearing right renal cyst measuring 3.7 x 2.6 cm that has increased in size from the comparison study. There is a subcentimeter cortical hypodensity, too small to characterize but likely a cyst. Stomach and bowel: There is an air-fluid level in the stomach. The cecum is in bascule position along the undersurface of the liver without colonic obstruction. However, there are multiple dilated loops of small bowel with air-fluid levels with a point of transition at a whirl in the right side of theabdomen, level of the iliac crest (series 5, image 67; series 7, images 34 - 47; series 8, images 81- 105). The colon contains some gas and stool but is mostly decompressed and demonstrates a thickened, hyperemic wall (series 7, image 20). Appendix: No evidence of appendicitis. Intraperitoneal space: There is no free air. There is no gas in the portal vein or portal venous radicles of the liver. Vasculature: There is mild atherosclerotic calcification of the abdominal aorta and its branches without aneurysm. Lymph nodes: No enlarged retroperitoneal or mesenteric lymph nodes. Urinary bladder: The bladder shows a normal contour and is free of calcific opacities. Reproductive: The prostate is enlarged, measuring 6 cm in transverse dimension. Bones/joints: There is degenerative disc disease at L1-L2 and L2-L3. There is mild superior endplate compression fracture of L3 at the site of a Schmorl's node, no significantly changed from the comparison study. Soft tissues: There is some fatty degeneration of the rectus abdominus sheaths. IMPRESSION: 1. Closed loop small bowel obstruction with the point of transition at a whirl in the right mid abdomen. No evidence of free air or gas in the portal vein. 2. Right nonobstructive nephrolithiasis. 3. A simple appearing cyst in the right kidney that has increased in size from comparison. 4. Additional non emergent findings as above Lab Data Lab results reviewed: Yes I reviewed the patient's lab results. Labs: Laboratory Tests Range/Units 06/04/22 06/04/22 06/04/22 15:58 15:58 15:58 WBC (4.4-10.8) 10^3/uL 12.64 H RBC (4.36-5.78) 10^6/uL 5.08 Hgb (13.5-17.5) g/dL 15.9 Hct (40.0-50.0) % 46.0 MCV (80-95) fL 91 MCH (27.0-33.0) pg 31.3 MCHC (32.0-36.0) % 34.6 RDW (11.8-14.1) % 12.3 Plt Count (130-400) 10^3/uL 128 L MPV (8.0-11.0) fL 12.3 H Immature Gran % See Differential Neutrophils % 84.0 Band Neutrophils % 1 Lymphocytes % 7.0 Monocytes % 7.0 Eosinophils % 0.0 Basophils % 0.0 Metamyelocytes % 1 Nucleated RBC % (0.0-0.3) % 0.0 Absolute Neutrophils (1.2-6.7) 10^3/uL 10.74 H Absolute Lymphocytes (1.2-3.4) 10^3/uL 0.88 L Absolute Monocytes (0.1-0.8) 10^3/uL 0.88 H Absolute Eosinophils (0.0-0.7) 10^3/uL 0.00 Absolute Basophils (0.0-0.2) 10^3/uL 0.00 RBC Morphology Normal VBG Lactate (0.6-1.4) mmol/L 2.2 H* Sodium (136-145) mmol/L 137 Potassium (3.5-5.1) mmol/L 3.9 Chloride (98-107) mmol/L 100 Carbon Dioxide (21.0-32.0) mmol/L 27.0 Anion Gap (3-11) mmol/L 10.0 BUN (7-18) mg/dL 13 Creatinine (0.70-1.30) mg/dL 1.2 Est GFR (CKD-EPI 2020) (mL/min/1.73m2) 65.06 Glucose (74-106) mg/dL 145 H Calcium (8.5-10.1) mg/dL 10.1 Magnesium (1.8-2.4) mg/dL Total Bilirubin (0.2-1.0) mg/dL 1.1 H AST (15-37) U/L 39 H ALT (16-63) U/L 38 Alkaline Phosphatase (46-116) U/L 52 Troponin I (<or=60) ng/L Total Protein (6.4-8.2) g/dL 7.7 Albumin (3.4-5.0) g/dL 4.3 Lipase (73-393) U/L 94 COVID-19 Source SARS-CoV-2 (PCR) (Negative) Range/Units 06/04/22 06/04/22 06/04/22 15:58 15:58 16:10 WBC (4.4-10.8) 10^3/uL RBC (4.36-5.78) 10^6/uL Hgb (13.5-17.5) g/dL Hct (40.0-50.0) % MCV (80-95) fL MCH (27.0-33.0) pg MCHC (32.0-36.0) % RDW (11.8-14.1) % Plt Count (130-400) 10^3/uL MPV (8.0-11.0) fL Immature Gran % Neutrophils % Band Neutrophils % Lymphocytes % Monocytes % Eosinophils % Basophils % Metamyelocytes % Nucleated RBC % (0.0-0.3) % Absolute Neutrophils (1.2-6.7) 10^3/uL Absolute Lymphocytes (1.2-3.4) 10^3/uL Absolute Monocytes (0.1-0.8) 10^3/uL Absolute Eosinophils (0.0-0.7) 10^3/uL Absolute Basophils (0.0-0.2) 10^3/uL RBC Morphology VBG Lactate (0.6-1.4) mmol/L Sodium (136-145) mmol/L Potassium (3.5-5.1) mmol/L Chloride (98-107) mmol/L Carbon Dioxide (21.0-32.0) mmol/L Anion Gap (3-11) mmol/L BUN (7-18) mg/dL Creatinine (0.70-1.30) mg/dL Est GFR (CKD-EPI 2020) (mL/min/1.73m2) Glucose (74-106) mg/dL Calcium (8.5-10.1) mg/dL Magnesium (1.8-2.4) mg/dL 1.9 Total Bilirubin (0.2-1.0) mg/dL AST (15-37) U/L ALT (16-63) U/L Alkaline Phosphatase (46-116) U/L Troponin I (<or=60) ng/L < 50 Total Protein (6.4-8.2) g/dL Albumin (3.4-5.0) g/dL Lipase (73-393) U/L COVID-19 Source Nasal/Nares SARS-CoV-2 (PCR) (Negative) Negative Range/Units 06/04/22 18:52 WBC (4.4-10.8) 10^3/uL RBC (4.36-5.78) 10^6/uL Hgb (13.5-17.5) g/dL Hct (40.0-50.0) % MCV (80-95) fL MCH (27.0-33.0) pg MCHC (32.0-36.0) % RDW (11.8-14.1) % Plt Count (130-400) 10^3/uL MPV (8.0-11.0) fL Immature Gran % Neutrophils % Band Neutrophils % Lymphocytes % Monocytes % Eosinophils % Basophils % Metamyelocytes % Nucleated RBC % (0.0-0.3) % Absolute Neutrophils (1.2-6.7) 10^3/uL Absolute Lymphocytes (1.2-3.4) 10^3/uL Absolute Monocytes (0.1-0.8) 10^3/uL Absolute Eosinophils (0.0-0.7) 10^3/uL Absolute Basophils (0.0-0.2) 10^3/uL RBC Morphology VBG Lactate (0.6-1.4) mmol/L 1.2 Sodium (136-145) mmol/L Potassium (3.5-5.1) mmol/L Chloride (98-107) mmol/L Carbon Dioxide (21.0-32.0) mmol/L Anion Gap (3-11) mmol/L BUN (7-18) mg/dL Creatinine (0.70-1.30) mg/dL Est GFR (CKD-EPI 2020) (mL/min/1.73m2) Glucose (74-106) mg/dL Calcium (8.5-10.1) mg/dL Magnesium (1.8-2.4) mg/dL Total Bilirubin (0.2-1.0) mg/dL AST (15-37) U/L ALT (16-63) U/L Alkaline Phosphatase (46-116) U/L Troponin I (<or=60) ng/L Total Protein (6.4-8.2) g/dL Albumin (3.4-5.0) g/dL Lipase (73-393) U/L COVID-19 Source SARS-CoV-2 (PCR) (Negative) ECG Data Attestation: I personally reviewed and interpreted this ECG (s) as follows: Interpretation: Sinus rhythm, ventricular rate 74. Right bundle branch block. No STEMI. HPI General Mode of arrival: EMS. Date/Time Provider Initiated Documentation: 06/04/22 15:27. Limitations to Documentation: no limitations. Information obtained by: patient. History of Present Illness 72 year old M presents to the emergency department with the chief complaint of Abd Pain, described as moderate, with intensity rated at 6. Quality is described as aching and sharp, and is localized to the abdomen. Patient reports no radiation. Patient started experiencing this hour(s) (6) and it has been constant. No relieving factors improve symptom(s), No exacerbating factors reported . Patient notes nausea/vomiting. Patient did receive the following treatments prior to arrival, none Related Data Home Medications Medication Instructions Recorded Confirmed ibuprofen 200 mg tablet 400 mg PO QID PRN PRN 03/07/16 06/04/22 fluocinolone 0.01 % topical See Rx Instructions .Route .COMPLEX 06/04/22 06/04/22 solution tadalafil 10 mg tablet See Rx Instructions .Route .COMPLEX 06/04/22 06/04/22 Allergies Allergy/AdvReac Type Severity Reaction Status Date / Time wheat Allergy Severe Anaphylaxsi Unverified 06/04/22 15:29 s Penicillins Allergy Unknown Hives Unverified 06/04/22 15:29 gluten Allergy Anaphylaxsi Unverified 06/04/22 15:29 s General Stated Complaint: Abd Prob ERNIE: 3 Review of Systems Constitutional Constitutional: Denies fatigue, Denies fever(s) and Denies weakness ENT Ears, Nose, Mouth, and Throat: Denies neck pain Cardiovascular Cardiovascular: Denies chest pain and Denies dyspnea Respiratory Respiratory: Denies cough and Denies dyspnea Gastrointestinal Gastrointestinal: Reports abdominal pain, Denies melena, Denies hematochezia, Denies constipation, Denies diarrhea, Reports nausea and Reports vomiting Genitourinary Genitourinary: Denies dysuria Musculoskeletal Musculoskeletal: Reports back pain (chronic) and Denies neck pain Integumentary/Breasts Skin/Breast: Denies rash Neurologic Neurologic: Denies weakness Endocrine Endocrine: Denies fatigue Hematologic/Lymphatic Hematologic/Lymphatic: Denies easy bleeding and Denies easy bruising PFSH All Active Problems (Updated 06/04/22 @ 19:09 by TETO Loza) Small bowel obstruction (Acute) Family history of prostate cancer (Acute) Kidney stone (Chronic) Colon polyps (Acute) Medical History Cervical arthritis Diverticulitis Surgical History History of colostomy reversal Colostomy take down 2006 History of fusion of cervical spine Hx of colectomy Sigmoid colectomy with Yolande's Pouch Hx of colonoscopy 05/15/19 Social History Smoking/Tobacco Use Status: Former Tobacco Use Smoking risk assessment performed?: Yes Alcohol Intake: current Alcohol Intake frequency: a few times a week Drug use: Never Substance use type: marijuana Details: Edible marijuana for pain 10 days ago alchol 3 days ago, couple beers Do you feel safe at home: Yes Do you feel safe in your relationship?: Yes Exam Const General: cooperative, healthy appearing and no acute distress Orientation: alert and awake HENMA Head: normal to inspection, normocephalic and atraumatic Face and sinus: normal facial exam Mouth: moist mucous membranes Eyes General: appearance normal, both eyes and all related structures Conjunctivae: conjunctivae normal Neck Neck: normal visual inspection, full ROM, trachea midline and supple Resp Effort & Inspection: normal respiratory effort and able to speak in complete sentences Auscultation: clear to auscultation bilaterally Cardio Rate: regular rate Rhythm: regular rhythm GI Inspection: normal to inspection Palpation: soft, not firm, no guarding, no pulsatile masses and tender periumbilically Auscultation: hypoactive bowel sounds Back/Spine/Pelvis Back: No back tenderness Skin General skin exam: no rashes or lesions noted Neuro General: patient alert, patient awake, moves all extremities and no focal motor deficits Cognition: normal cognition Speech: speech normal Gait: normal gait Sensory Exam: no sensory deficits noted Psych Appearance: grossly normal Mental Status: mental status grossly normal Course Vital Signs Vital signs: Vital Signs Temperature 36.2 C L 06/04/22 15:25 Pulse 69 06/04/22 15:25 Respiratory Rate 18 06/04/22 15:25 Blood Pressure 145/80 H 06/04/22 15:25 Pulse Oximetry 98 06/04/22 15:25 Temperature 36.2 C L 06/04/22 15:25 Temperature Source Temporal Artery Scan 06/04/22 15:25 Pulse 69 06/04/22 15:25 Respiratory Rate 18 06/04/22 15:25 Respiratory Effort Non-Labored 06/04/22 15:27 Blood Pressure 145/80 H 06/04/22 15:25 Blood Pressure Position Sitting 06/04/22 15:25 Pulse Oximetry 98 06/04/22 15:25 Oxygen Delivery Method Room Air 06/04/22 15:25 Oxygen Flow Rate 0 06/04/22 15:25 Pain Level 4 06/04/22 15:27
--- NOTE | 2022-06-04 16:00 | RT.EKG_ITS ---
APPROVED REPORT Exam: Resting ECG Reason for Exam: hypokalemia Patient Location: E HR:74 bpm ECG Measurements Heart Rate 74 AXIS NM 174 P 52 QRSd 151 QRS 81 QT 456 T -16 QTc 495 Conclusion Sinus rhythm...normal P axis, V-rate 60- 99 Ventricular premature complex...V complex w/ short R-R interval Right bundle branch block...QRSd>120, terminal axis(90,270). Sinus. PVCs. RBBB. No STEMI. I have reviewed and interpreted ECG and agree with software generated interpretation.
[2022-06-04 16:05] LABS: Abs Immature Grans 0.04 10^3/uL (0.0-0.06); HGB 15.9 g/dL (13.5-17.5); Lactate 2.2 mmol/L (0.6-1.4); MCH 31.3 pg (27.0-33.0); MCHC 34.6 % (32.0-36.0); MCV 91 fL (80-95); MPV 12.3 fL (8.0-11.0); RBC 5.08 10^6/uL (4.36-5.78); RDW 12.3 % (11.8-14.1); RDW-SD 41.1 fL; WBC 12.64 10^3/uL (4.4-10.8)
[2022-06-04] MEDS: Ondansetron 4 MG/2 ML VIAL IVP (16:07)
[2022-06-04] MEDS: MORPHine 10 MG/ML VIAL 4 MG IVP (16:07)
[2022-06-04] MEDS: Normal Saline 1,000 ML 1000 ML IV (16:08)
[2022-06-04 16:19] LABS: ALT 38 U/L (16-63); AST 39 U/L (15-37); Albumin 4.3 g/dL (3.4-5.0); Alkaline Phosphatase 52 U/L (46-116); BUN 13 mg/dL (7-18); Bilirubin, Total 1.1 mg/dL (0.2-1.0); CREATININE 1.2 mg/dL (0.70-1.30); Calcium 10.1 mg/dL (8.5-10.1); Chloride 100 mmol/L (98-107); Estimated GFR 65.06 (mL/min/1.73m2); Glucose 145 mg/dL (74-106); Lipase 94 U/L (73-393); Potassium 3.9 mmol/L (3.5-5.1); Sodium 137 mmol/L (136-145); Total Protein 7.7 g/dL (6.4-8.2)
[2022-06-04 16:19] LABS: Source Nasal/Nares
[2022-06-04] MEDS: Potassium Chloride 20 MEQ TABCR 40 MEQ PO (16:29)
[2022-06-04 16:38] LABS: Magnesium 1.9 mg/dL (1.8-2.4); Troponin I < 50 ng/L (<or=60)
[2022-06-04 16:51] LABS: Absolute Lymphocyte Count 0.88 10^3/uL (1.2-3.4); Absolute Monocyte Count 0.88 10^3/uL (0.1-0.8); Absolute Neutrophil Count 10.74 10^3/uL (1.2-6.7); Bands % 1; Diff Comment Manual Differential; Metamyelocytes % 1; Platelet Count 128 10^3/uL (130-400); RBC Morphology Normal
[2022-06-04 16:59] LABS: COVID-19 PCR Negative (Negative)
[2022-06-04] MEDS: Omnipaque 350 MG/ML 100 ML BTL IJ (17:15)
[2022-06-04] MEDS: Normal Saline Flush 10 ML SYR IVP ×3 (17:16→23:06)
[2022-06-04] MEDS: Lactated Ringers 1,000 ML 1000 ML IV (17:50)
[2022-06-04] MEDS: MORPHine 4 MG/ML SYR IVP (18:06)
--- NOTE | 2022-06-04 18:25 | DI.VRAD_ITS ---
Addendum created by Edwar Johnston MD on 06/04/2022 9:53:55 PM EDT: There is a surgical anastomosis in the sigmoid colon without evidence of obstruction. Initial report created on 06/04/2022 6:25:27 PM EDT: PROCEDURE INFORMATION: Exam: CT Abdomen And Pelvis With Contrast Exam date and time: 06/04/2022 5:04 PM Age: 72 years old Clinical indication: Other: Periumbillical pain, HX of sbo TECHNIQUE: Imaging protocol: Computed tomography of the abdomen and pelvis with contrast. Radiation optimization: All CT scans at this facility use at least one of these dose optimization techniques: automated exposure control; mA and/or kV adjustment per patient size (includes targeted exams where dose is matched to clinical indication); or iterative reconstruction. Contrast material: OMNIPAQUE 350; Contrast volume: 100 ml; Contrast route: INTRAVENOUS (IV); COMPARISON: CT ABDOMEN PELVIS WO 12/01/2021 12:44 PM FINDINGS: Lungs: The visualized lung barone show mild bibasilar atelectasis. Liver: Normal in size. No enhancing liver lesions identified. Gallbladder and bile ducts: No calcified stones. No ductal dilation. Pancreas: Normal in size and homogeneous enhancement. No ductal dilation. Spleen: Normal. No splenomegaly. Adrenal glands: Normal. No mass. Kidneys and ureters: There is no hydronephrosis. In the right kidney, there are multiple nonobstructive calculi as large as 4 mm. Additionally, there is a simple appearing right renal cyst measuring 3.7 x 2.6 cm that has increased in size from the comparison study. There is a subcentimeter cortical hypodensity, too small to characterize but likely a cyst. Stomach and bowel: There is an air-fluid level in the stomach. The cecum is in bascule position along the undersurface of the liver without colonic obstruction. However, there are multiple dilated loops of small bowel with air-fluid levels with a point of transition at a whirl in the right side of the abdomen, level of the iliac crest (series 5, image 67; series 7, images 34 - 47; series 8, images 81-105). The colon contains some gas and stool but is mostly decompressed and demonstrates a thickened, hyperemic wall (series 7, image 20). Appendix: No evidence of appendicitis. Intraperitoneal space: There is no free air. There is no gas in the portal vein or portal venous radicles of the liver. Vasculature: There is mild atherosclerotic calcification of the abdominal aorta and its branches without aneurysm. Lymph nodes: No enlarged retroperitoneal or mesenteric lymph nodes. Urinary bladder: The bladder shows a normal contour and is free of calcific opacities. Reproductive: The prostate is enlarged, measuring 6 cm in transverse dimension. Bones/joints: There is degenerative disc disease at L1-L2 and L2-L3. There is mild superior endplate compression fracture of L3 at the site of a Schmorl's node, no significantly changed from the comparison study. Soft tissues: There is some fatty degeneration of the rectus abdominus sheaths. IMPRESSION: 1. Closed loop small bowel obstruction with the point of transition at a whirl in the right mid abdomen. No evidence of free air or gas in the portal vein. 2. Right nonobstructive nephrolithiasis. 3. A simple appearing cyst in the right kidney that has increased in size from comparison. 4. Additional non emergent findings as above. THIS REPORT CONTAINS FINDINGS THAT MAY BE CRITICAL TO PATIENT CARE. The findings were verbally communicated via telephone conference with Marin Pena at 6:12 PM EDT on 06/04/2022. The findings were acknowledged and understood. Dictated and Authenticated by: Edwar Johnston MD. Ordering:GIGI Funes MD
[2022-06-04 18:55] LABS: Lactate 1.2 mmol/L (0.6-1.4)
--- NOTE | 2022-06-04 19:36 | W.SURGCON ---
Date of service: 06/04/22 Time of Service: 19:36 Assessment and Plan Assessment and plan (1) Small bowel obstruction: Status: Acute Assessment and plan: Mr. Acosta is a pleasant 72 year old male with a history of SBO secondary to adhesions. He comes in today with another SBO. Radiologist is calling it a closed loop obstruction. I do not see a swirl as dscribed. I think he has a distal obstruction as well as fecalization of stool in the distal Small bowel. Exam is benign at this time. Lactate has normalized after some hydration. Long discussion with patient regarding placing a NG Tube, and bowel rest. Discussed that if his pain gets worse or there is no resolution of his obstruction in 72 hours then he may need surgery. Surgery would entail another ex-lap and lysis of adhesions. We discussed possible complications of surgery. Certainly this is a surgery that we can do here. Patient at this time requests that we check to see [place] [facility] [place] NO beds available. I will discuss case with surgery and see if they can take a peak at the CT scan for another opinion. Patient told of the fact that there [place] no [place] available at [facility] [place] Discussed case with Dr. Jorge who looked at the CT scan as well. She also doesn't see a swirl sign. She feels that as long s his exam is benign he can just have medical treatment with NG tube and bowel rest. This was discussed with Feliciano and he is OK to stay here. Admission orders placed. 1 hour spend with discussion with patient, and [facility] well as reviewing the chart and documenting. History of Present Illness Narrative: Mr. Acosta is a pleasant 72 year old male who comes o the ER with onset of abdominal pain today. He has a history of hartmans procedure for diverticulitis. The ostomy was taken down 3 months after his original surgery. he has had several SBO in the past. He has been able to clear them without surgery. His pain is currently managable after 4 mg of IV Morphine. he had one episode of Vomiting. He is nauseated but has not had emesis since being in the ED. Workup showed a slight increase in his WBC count and an elevated Lactate. Repeat Lactate after 1 L of LR was normal. CT scan shows dilatation of his small bowel. There is air and stool within the colon. Radiologist called it a closed loop obstruction. Consults Consult date: 06/04/22 Requesting physician: Marin Pena Review of Systems Constitutional Constitutional: Denies fever(s), Denies headache(s) and Denies weight loss Eyes Eyes: Denies change in vision ENT Ears, Nose, Mouth, and Throat: Denies dysphagia, Denies headache(s) and Denies hoarseness Cardiovascular Cardiovascular: Reports chest pain, Reports chest pain at rest, Reports irregular heart rhythm, Reports palpitations, Reports dyspnea and Reports dyspnea on exertion Respiratory Respiratory: Denies cough, Reports dyspnea and Reports dyspnea on exertion Gastrointestinal Gastrointestinal: Reports as per HPI and Denies dysphagia Genitourinary Genitourinary: Denies oliguria and Denies difficulty urinating Musculoskeletal Musculoskeletal: Reports system reviewed and no additional complaints, except as documented Integumentary/Breasts Skin/Breast: Reports system reviewed and no additional complaints, except as documented Neurologic Neurologic: Reports system reviewed and no additional complaints, except as documented and Denies headache(s) Psychiatric Psychiatric: Reports system reviewed and no additional complaints, except as documented Endocrine Endocrine: Reports palpitations PFSH All Active Problems Small bowel obstruction (Acute) Family history of prostate cancer (Acute) Kidney stone (Chronic) Colon polyps (Acute) Medical History Cervical arthritis Diverticulitis Surgical History History of colostomy reversal Colostomy take down 2006 History of fusion of cervical spine Hx of colectomy Sigmoid colectomy with Yolande's Pouch Hx of colonoscopy 05/15/19 Social History Smoking/Tobacco Use Status: Former Tobacco Use Smoking risk assessment performed?: Yes Alcohol Intake: current Alcohol Intake frequency: a few times a week Drug use: Never Substance use type: marijuana Details: Edible marijuana for pain 10 days ago alchol 3 days ago, couple beers Do you feel safe at home: Yes Do you feel safe in your relationship?: Yes Exam Const General: cooperative, comfortable and no acute distress Orientation: alert and oriented x3 HENMT Head: normocephalic and atraumatic Eyes Pupils: PERRL Resp Effort & Inspection: normal respiratory effort Auscultation: clear to auscultation bilaterally Cardio Rate: regular rate Rhythm: regular rhythm Heart Sounds: no gallops, no murmurs and no rubs GI Inspection: distended and scar (midline scar noted as well as LLQ scar at old ostomy site) Palpation: soft, no hepatosplenomegaly and tender (throughout with voluntary guarding. No rebound) Auscultation: absent bowel sounds Results Last Vital Signs Temp 97.1 F L 06/04/22 15:25 Pulse 73 06/04/22 18:00 Resp 18 06/04/22 15:25 BP 149/82 H 06/04/22 18:00 Pulse Ox 97 06/04/22 18:10 Labs Result diagrams: 06/04/22 15:58 06/04/22 15:58 Labs: Laboratory Results - last 24 hr 06/04/22 06/04/22 06/04/22 15:58 15:58 15:58 WBC 12.64 H RBC 5.08 Hgb 15.9 Hct 46.0 MCV 91 MCH 31.3 MCHC 34.6 RDW 12.3 Plt Count 128 L MPV 12.3 H Immature Gran % See Differential Neutrophils % 84.0 Band Neutrophils % 1 Lymphocytes % 7.0 Monocytes % 7.0 Eosinophils % 0.0 Basophils % 0.0 Metamyelocytes % 1 Nucleated RBC % 0.0 Absolute Neutrophils 10.74 H Absolute Lymphocytes 0.88 L Absolute Monocytes 0.88 H Absolute Eosinophils 0.00 Absolute Basophils 0.00 RBC Morphology Normal VBG Lactate 2.2 H* Sodium 137 Potassium 3.9 Chloride 100 Carbon Dioxide 27.0 Anion Gap 10.0 BUN 13 Creatinine 1.2 Est GFR (CKD-EPI 2020) 65.06 Glucose 145 H Calcium 10.1 Magnesium Total Bilirubin 1.1 H AST 39 H ALT 38 Alkaline Phosphatase 52 Troponin I Total Protein 7.7 Albumin 4.3 Lipase 94 COVID-19 Source SARS-CoV-2 (PCR) 06/04/22 06/04/22 06/04/22 15:58 15:58 16:10 WBC RBC Hgb Hct MCV MCH MCHC RDW Plt Count MPV Immature Gran % Neutrophils % Band Neutrophils % Lymphocytes % Monocytes % Eosinophils % Basophils % Metamyelocytes % Nucleated RBC % Absolute Neutrophils Absolute Lymphocytes Absolute Monocytes Absolute Eosinophils Absolute Basophils RBC Morphology VBG Lactate Sodium Potassium Chloride Carbon Dioxide Anion Gap BUN Creatinine Est GFR (CKD-EPI 2020) Glucose Calcium Magnesium 1.9 Total Bilirubin AST ALT Alkaline Phosphatase Troponin I < 50 Total Protein Albumin Lipase COVID-19 Source Nasal/Nares SARS-CoV-2 (PCR) Negative 06/04/22 18:52 WBC RBC Hgb Hct MCV MCH MCHC RDW Plt Count MPV Immature Gran % Neutrophils % Band Neutrophils % Lymphocytes % Monocytes % Eosinophils % Basophils % Metamyelocytes % Nucleated RBC % Absolute Neutrophils Absolute Lymphocytes Absolute Monocytes Absolute Eosinophils Absolute Basophils RBC Morphology VBG Lactate 1.2 Sodium Potassium Chloride Carbon Dioxide Anion Gap BUN Creatinine Est GFR (CKD-EPI 2020) Glucose Calcium Magnesium Total Bilirubin AST ALT Alkaline Phosphatase Troponin I Total Protein Albumin Lipase COVID-19 Source SARS-CoV-2 (PCR) Imaging Abdomen CT scan report/results: report reviewed and image reviewed
--- NOTE | 2022-06-04 20:30 | DI.RAD_ITS ---
Exam(s) XR ABDOMEN FLAT PLATE EXAM: 2D digital imaging was performed. CLINICAL HISTORY: KUB for ng tube placement. COMPARISON: CT CT ABDOMEN PELVIS W from 06/04/2022 TECHNIQUE: Supine views of the abdomen performed. FINDINGS: BOWEL GAS PATTERN: A nasogastric tube has been inserted which projects in the stomach. There is cont inued dilatation of loops of small bowel as seen on prior CT. OSSEOUS STRUCTURES: Normal for age. OTHER FINDINGS: Contrast is noted in the urinary bladder related to prior CT. IMPRESSION: Satisfactory position of NG tube. DATA REPOSITORY: RADIATION DOSE DELIVERED:
--- NOTE | 2022-06-04 21:51 | DI.VRAD_ITS ---
PROCEDURE INFORMATION: Exam: XR Abdomen Exam date and time: 06/04/2022 8:46 PM Age: 72 years old Clinical indication: Device placement; Gi device; Nasogastric tube; Prior surgery; Surgery date: 6+ months; Surgery type: HX of colectomy; Patient HX: Ng tube placement TECHNIQUE: Imaging protocol: Radiologic exam of the abdomen. Views: Frontal supine view of the abdomen. 1 View. COMPARISON: CT ABDOMEN PELVIS W 06/04/2022 5:04 PM FINDINGS: Tubes, catheters and devices: There is a nasogastric tube with its tip and side port in the fundus of the stomach. Gastrointestinal tract: Multiple dilated loops of small bowel are seen with transition to decompressed bowel, consistent with small bowel obstruction. Intraperitoneal space: There is no evidence of free air in this supine examination. Organs: There is radiographic contrast in the right renal collecting system and bladder. Bones/joints: Unremarkable. IMPRESSION: 1. Nasogastric tube tip and side port in the fundus of the stomach. 2. Findings consistent with small bowel obstruction. Dictated and Authenticated by: Edwar Johnston MD. Ordering:GIGI Funes MD
[2022-06-04] MEDS: Lactated Ringers 1,000 ML 125 ML IV (22:16)
[2022-06-04 22:21] LABS: Bilirubin Negative (Negative); Blood Negative (Negative); Clarity Sl Cloudy (Clear); Glucose Negative (Negative); Ketones 80 mg/dL (Negative); Leukocyte Esterase Negative (Negative); Nitrite Negative (Negative); Specific Gravity 1.015 (1.005-1.025); Urobilinogen 0.2 EU/dL (Up TO 0.2); pH 8.5 (5-8)
[2022-06-04] MEDS: ACETAMINOPHEN 1,000 MG/100 ML BTL 400 MG IVPB (22:22)
[2022-06-04 22:27] LABS: Bacteria Negative HPF (Negative); C & S Indicated? No; Crystals Moderate Amorphous HPF (Negative); Epithelial Cells Negative HPF (Negative); Mucus Negative (Negative); RBC Negative HPF (0-2); WBC Negative HPF (0-5)
[2022-06-04] MEDS: Ketorolac 15 MG/ML VIAL IVP (23:05)
[2022-06-04] MEDS: Pantoprazole 40 MG VIAL IVP (23:08)
[2022-06-04] MEDS: Enoxaparin 40 MG/0.4 ML SYR SC (23:11)
[2022-06-05 01:27] LABS: Lactate 0.6 mmol/L (0.6-1.4)
[2022-06-05 04:55] VITALS: BP 131/81; PULSE 77; RESP 14; TEMP 36.6; O2SAT 92
[2022-06-05] MEDS: Lactated Ringers 1,000 ML 125 ML IV ×3 (06:07→22:00)
[2022-06-05] MEDS: ACETAMINOPHEN 1,000 MG/100 ML BTL 400 MG IVPB ×3 (06:09→21:58)
[2022-06-05] MEDS: Ondansetron 4 MG/2 ML VIAL IVP ×2 (06:12→20:34)
[2022-06-05 07:03] LABS: Abs Immature Grans 0.03 10^3/uL (0.0-0.06); Absolute Basophil Count 0.01 10^3/uL (0.0-0.2); Absolute Eosinophil Count 0.05 10^3/uL (0.0-0.7); Absolute Lymphocyte Count 0.98 10^3/uL (1.2-3.4); Absolute Monocyte Count 0.75 10^3/uL (0.1-0.8); Absolute Neutrophil Count 6.56 10^3/uL (1.2-6.7); Basophils % 0.1; Eosinophils % 0.6; HCT 43.2 % (40.0-50.0); HGB 14.4 g/dL (13.5-17.5); Immature Grans % 0.4; Lymphocytes % 11.7; MCH 31.4 pg (27.0-33.0); MCHC 33.3 % (32.0-36.0); MCV 94 fL (80-95); MPV 12.7 fL (8.0-11.0); Monocytes % 8.9; Neutrophils % 78.3; Platelet Count 113 10^3/uL (130-400); RBC 4.59 10^6/uL (4.36-5.78); RDW 12.8 % (11.8-14.1); RDW-SD 44.5 fL; WBC 8.38 10^3/uL (4.4-10.8)
[2022-06-05 07:12] LABS: Anion Gap 6.2 mmol/L (3-11); BUN 17 mg/dL (7-18); CO2 29.8 mmol/L (21.0-32.0); CREATININE 1.1 mg/dL (0.70-1.30); Calcium 9.2 mg/dL (8.5-10.1); Chloride 104 mmol/L (98-107); Estimated GFR 72.22 (mL/min/1.73m2); Glucose 102 mg/dL (74-106); Potassium 3.7 mmol/L (3.5-5.1); Sodium 140 mmol/L (136-145)
--- NOTE | 2022-06-05 07:18 | PGE_ITS ---
Date of Service Date of service: 06/05/22 Time of Service: 07:18 Assessment and Plan Assessment and plan (1) Small bowel obstruction: Status: Acute Assessment and plan: Feliciano is feeling better this morning. Abdomen is soft and non-tender. He has some BS Continue with NG to suction Await return of bowel function Ok to clamp NG so patient can walk Subjective Subjective Interval history since last seen: Feliciano is doing well this morning. He feels better. No flatus yet. Pain is better Exam Resp Effort & Inspection: normal respiratory effort Auscultation: clear to auscultation bilaterally Cardio Rate: regular rate Rhythm: regular rhythm GI Palpation: soft, no hepatosplenomegaly and nontender Auscultation: hypoactive bowel sounds Objective Last Vital Signs Temp 97.9 F 06/05/22 04:55 Pulse 77 06/05/22 04:55 Resp 14 06/05/22 04:55 BP 131/81 06/05/22 04:55 Pulse Ox 92 06/05/22 04:55 Laboratory Results - last 24 hr 06/04/22 06/04/22 06/04/22 15:58 15:58 15:58 WBC 12.64 H RBC 5.08 Hgb 15.9 Hct 46.0 MCV 91 MCH 31.3 MCHC 34.6 RDW 12.3 Plt Count 128 L MPV 12.3 H Immature Gran % See Differential Neutrophils % 84.0 Band Neutrophils % 1 Lymphocytes % 7.0 Monocytes % 7.0 Eosinophils % 0.0 Basophils % 0.0 Metamyelocytes % 1 Nucleated RBC % 0.0 Absolute Neutrophils 10.74 H Absolute Lymphocytes 0.88 L Absolute Monocytes 0.88 H Absolute Eosinophils 0.00 Absolute Basophils 0.00 RBC Morphology Normal VBG Lactate 2.2 H* Sodium 137 Potassium 3.9 Chloride 100 Carbon Dioxide 27.0 Anion Gap 10.0 BUN 13 Creatinine 1.2 Est GFR (CKD-EPI 2020) 65.06 Glucose 145 H Calcium 10.1 Magnesium Total Bilirubin 1.1 H AST 39 H ALT 38 Alkaline Phosphatase 52 Troponin I Total Protein 7.7 Albumin 4.3 Lipase 94 Urine Color Urine Clarity Urine pH Ur Specific [place] Urine Protein Urine Ketones Urine Blood Urine Nitrite Urine Bilirubin Urine Urobilinogen Ur Leukocyte Esterase Urine RBC Urine WBC Ur Epithelial Cells Urine Crystals Urine Bacteria Urine Mucus Ur Culture Indicated? Urine Glucose COVID-19 Source SARS-CoV-2 (PCR) 06/04/22 06/04/22 06/04/22 15:58 15:58 16:10 WBC RBC Hgb Hct MCV MCH MCHC RDW Plt Count MPV Immature Gran % Neutrophils % Band Neutrophils % Lymphocytes % Monocytes % Eosinophils % Basophils % Metamyelocytes % Nucleated RBC % Absolute Neutrophils Absolute Lymphocytes Absolute Monocytes Absolute Eosinophils Absolute Basophils RBC Morphology VBG Lactate Sodium Potassium Chloride Carbon Dioxide Anion Gap BUN Creatinine Est GFR (CKD-EPI 2020) Glucose Calcium Magnesium 1.9 Total Bilirubin AST ALT Alkaline Phosphatase Troponin I < 50 Total Protein Albumin Lipase Urine Color Urine Clarity Urine pH Ur Specific [place] Urine Protein Urine Ketones Urine Blood Urine Nitrite Urine Bilirubin Urine Urobilinogen Ur Leukocyte Esterase Urine RBC Urine WBC Ur Epithelial Cells Urine Crystals Urine Bacteria Urine Mucus Ur Culture Indicated? Urine Glucose COVID-19 Source Nasal/Nares SARS-CoV-2 (PCR) Negative 06/04/22 06/04/22 06/05/22 18:52 22:15 01:21 WBC RBC Hgb Hct MCV MCH MCHC RDW Plt Count MPV Immature Gran % Neutrophils % Band Neutrophils % Lymphocytes % Monocytes % Eosinophils % Basophils % Metamyelocytes % Nucleated RBC % Absolute Neutrophils Absolute Lymphocytes Absolute Monocytes Absolute Eosinophils Absolute Basophils RBC Morphology VBG Lactate 1.2 0.6 Sodium Potassium Chloride Carbon Dioxide Anion Gap BUN Creatinine Est GFR (CKD-EPI 2020) Glucose Calcium Magnesium Total Bilirubin AST ALT Alkaline Phosphatase Troponin I Total Protein Albumin Lipase Urine Color Yellow Urine Clarity Sl Cloudy Urine pH 8.5 H Ur Specific [place] 1.015 Urine Protein Trace H Urine Ketones 80 H Urine Blood Negative Urine Nitrite Negative Urine Bilirubin Negative Urine Urobilinogen 0.2 Ur Leukocyte Esterase Negative Urine RBC Negative Urine WBC Negative Ur Epithelial Cells Negative Urine Crystals Moderate Amorphous Urine Bacteria Negative Urine Mucus Negative Ur Culture Indicated? No Urine Glucose Negative COVID-19 Source SARS-CoV-2 (PCR) 06/05/22 06/05/22 06:42 06:42 WBC 8.38 RBC 4.59 Hgb 14.4 Hct 43.2 MCV 94 MCH 31.4 MCHC 33.3 RDW 12.8 Plt Count 113 L MPV 12.7 H Immature Gran % 0.4 Neutrophils % 78.3 Band Neutrophils % Lymphocytes % 11.7 Monocytes % 8.9 Eosinophils % 0.6 Basophils % 0.1 Metamyelocytes % Nucleated RBC % 0.0 Absolute Neutrophils 6.56 Absolute Lymphocytes 0.98 L Absolute Monocytes 0.75 Absolute Eosinophils 0.05 Absolute Basophils 0.01 RBC Morphology VBG Lactate Sodium 140 Potassium 3.7 Chloride 104 Carbon Dioxide 29.8 Anion Gap 6.2 BUN 17 Creatinine 1.1 Est GFR (CKD-EPI 2020) 72.22 Glucose 102 Calcium 9.2 Magnesium Total Bilirubin AST ALT Alkaline Phosphatase Troponin I Total Protein Albumin Lipase Urine Color Urine Clarity Urine pH Ur Specific [place] Urine Protein Urine Ketones Urine Blood Urine Nitrite Urine Bilirubin Urine Urobilinogen Ur Leukocyte Esterase Urine RBC Urine WBC Ur Epithelial Cells Urine Crystals Urine Bacteria Urine Mucus Ur Culture Indicated? Urine Glucose COVID-19 Source SARS-CoV-2 (PCR)
[2022-06-05 07:56] VITALS: BP 141/71; PULSE 74; RESP 18; TEMP 36.9; O2SAT 95
--- NOTE | 2022-06-05 09:16 | PDOC.CMIN ---
- If Service Date Differs Date of service: 06/05/22 Time of Service: 09:16 Care Management Initial Assess REASON FOR HOSPITALIZATION:: Small bowel obstruction PAST MEDICAL HISTORY/PAST SURGICAL HISTORY:: All Active Problems . Small bowel obstruction (Acute). Family history of prostate cancer (Acute). Kidney stone (Chronic). Colon polyps (Acute). Medical History . Cervical arthritis. Diverticulitis. Surgical History . History of colostomy reversal. Colostomy take down 2006. History of fusion of cervical spine. Hx of colectomy. Sigmoid colectomy with Yolande's Pouch. Hx of colonoscopy. 05/15/19 PREVIOUS FUNCTIONAL STATUS/SOCIAL/FAMILY SUPPORTS:: Feliciano is retired and lives in [place] with his Analisa. He is originally from [place] and has no family locally. Feliciano is active and independent at baseline. He enjoys endurance cycling (indoor and outdoor) and cross country skiing. CURRENT FUNCTIONAL STATUS:: Feliciano wasy lying in bed when CM met with his. He shares that he is feeling much better. He is ambulating frequently in an effort to speed the discharge process up so he can go home. ADVANCE DIRECTIVES:: None on file, CM will offer forms. Has patient been provided with info about the portal/API?: Yes Did the patient sign up for the portal?: No CODE STATUS:: Full Code INSURANCE COVERAGE / FINANCIAL ISSUES:: AARP. Medicare CURRENT HOME/COMMUNITY SERVICES/EQUIPMENT:: None PRIMARY CARE PHYSICIAN:: Dr. Griggs POTENTIAL DISCHARGE NEEDS:: Discharge plan of care. Follow up appointments with [facility] and PCP. PATIENT/FAMILY EDUCATION NEEDS:: Review discharge instructions, limitations, medications and plan to follow up with community providers. Review ask me three. TRANSPORTATION:: Via private vehicle with . PLAN:: Feliciano is being followed by [facility]. He has a NG tube and being closely monitored. Anticipate, Feliciano will discharge home via private vehicle with when medically ready.
[2022-06-05] MEDS: Ketorolac 15 MG/ML VIAL IVP (10:43)
[2022-06-05 15:44] VITALS: BP 138/82; PULSE 63; RESP 18; TEMP 36.8; O2SAT 95
--- NOTE | 2022-06-05 18:52 | W.PM.PROGNOT ---
Date of Service Date of service: 06/05/22 Time of Service: 16:30 Assessment and Plan Assessment and plan (1) Small bowel obstruction: Status: Acute Assessment and plan: Discussed with patient etiology of obstruction of scar tissue formation/adhesions following acute infections and open surgery. We talked about the role that diet plays. We discussed the importance of a high-fiber diet and the importance of regular bowel movements and avoiding straining. Patient states that he normally has regular bowel movements daily and does not strain to go to the bathroom. He does practice intermittent fasting. -His last colonoscopy was in [address] Espinal. He did not have any signs of recurrent diverticula. He did have an adenomatous polyp and she recommended a repeat colonoscopy in 2023. We discussed continuing supportive care for his obstruction and the importance of walking. - -Advance diet as tolerated. Anticipate DC in a.m. (2) History of colostomy reversal: Subjective Subjective Interval history since last seen: Pt is doing well. no headaches. No CP or SOB. no productive cough. no dysuria. no leg pain or swelling. He is passing gas but he has not moved his bowels. He is tolerating water and ice with the NG tube out. Exam GI Other: Postsurgical changes noted. No hernias palpable. Good bowel sounds. Soft and nontender. Objective Last Vital Signs Temp 36.8 C 06/05/22 15:44 Pulse 63 06/05/22 15:44 Resp 18 06/05/22 15:44 BP 138/82 06/05/22 15:44 Pulse Ox 95 06/05/22 15:44 Laboratory Results - last 24 hr 06/04/22 06/04/22 06/05/22 18:52 22:15 01:21 WBC RBC Hgb Hct MCV MCH MCHC RDW Plt Count MPV Immature Gran % Neutrophils % Lymphocytes % Monocytes % Eosinophils % Basophils % Nucleated RBC % Absolute Neutrophils Absolute Lymphocytes Absolute Monocytes Absolute Eosinophils Absolute Basophils VBG Lactate 1.2 0.6 Sodium Potassium Chloride Carbon Dioxide Anion Gap BUN Creatinine Est GFR (CKD-EPI 2020) Glucose Calcium Urine Color Yellow Urine Clarity Sl Cloudy Urine pH 8.5 H Ur Specific [place] 1.015 Urine Protein Trace H Urine Ketones 80 H Urine Blood Negative Urine Nitrite Negative Urine Bilirubin Negative Urine Urobilinogen 0.2 Ur Leukocyte Esterase Negative Urine RBC Negative Urine WBC Negative Ur Epithelial Cells Negative Urine Crystals Moderate Amorphous Urine Bacteria Negative Urine Mucus Negative Ur Culture Indicated? No Urine Glucose Negative 06/05/22 06/05/22 06:42 06:42 WBC 8.38 RBC 4.59 Hgb 14.4 Hct 43.2 MCV 94 MCH 31.4 MCHC 33.3 RDW 12.8 Plt Count 113 L MPV 12.7 H Immature Gran % 0.4 Neutrophils % 78.3 Lymphocytes % 11.7 Monocytes % 8.9 Eosinophils % 0.6 Basophils % 0.1 Nucleated RBC % 0.0 Absolute Neutrophils 6.56 Absolute Lymphocytes 0.98 L Absolute Monocytes 0.75 Absolute Eosinophils 0.05 Absolute Basophils 0.01 VBG Lactate Sodium 140 Potassium 3.7 Chloride 104 Carbon Dioxide 29.8 Anion Gap 6.2 BUN 17 Creatinine 1.1 Est GFR (CKD-EPI 2020) 72.22 Glucose 102 Calcium 9.2 Urine Color Urine Clarity Urine pH Ur Specific [place] Urine Protein Urine Ketones Urine Blood Urine Nitrite Urine Bilirubin Urine Urobilinogen Ur Leukocyte Esterase Urine RBC Urine WBC Ur Epithelial Cells Urine Crystals Urine Bacteria Urine Mucus Ur Culture Indicated? Urine Glucose
[2022-06-05] MEDS: MORPHine 2 MG/ML SYR IVP (19:32)
[2022-06-05] MEDS: Normal Saline Flush 10 ML SYR IVP ×2 (19:33→22:42)
[2022-06-05 19:36] VITALS: BP 151/85; PULSE 64; RESP 18; TEMP 37; O2SAT 99
[2022-06-05 20:35] VITALS: RESP 16; O2SAT 98
[2022-06-05] MEDS: Normal Saline 500 ML 30 ML IV (22:00)
[2022-06-05] MEDS: Enoxaparin 40 MG/0.4 ML SYR SC (22:41)
[2022-06-05] MEDS: Pantoprazole 40 MG VIAL IVP (22:41)
[2022-06-05 22:55] VITALS: BP 149/77; PULSE 69; RESP 16; TEMP 37.1; O2SAT 98
[2022-06-06] MEDS: Ondansetron 4 MG/2 ML VIAL IVP (02:38)
[2022-06-06] MEDS: Ketorolac 15 MG/ML VIAL IVP (02:39)
[2022-06-06] MEDS: Normal Saline Flush 10 ML SYR IVP ×3 (02:40→21:44)
[2022-06-06 02:53] VITALS: BP 148/85; PULSE 62; RESP 16; TEMP 37; O2SAT 98
[2022-06-06] MEDS: ACETAMINOPHEN 1,000 MG/100 ML BTL 400 MG IVPB ×3 (06:07→23:22)
[2022-06-06] MEDS: Lactated Ringers 1,000 ML 125 ML IV ×3 (06:08→23:23)
--- NOTE | 2022-06-06 07:00 | DI.RAD_ITS ---
Exam(s) XR ABDOMEN FLAT UPRIGHT EXAM: 2D digital imaging was performed. CLINICAL HISTORY: SBO s/s resumed. COMPARISON: CR,XR XR ABDOMEN FLAT PLATE from 06/04/2022 TECHNIQUE: Supine and upright views of the abdomen was performed. Four images were obtained. FINDINGS: LUNG BASES: Clear. BOWEL GAS PATTERN: There are persistently dilated loops of small bowel predominantly in the left abdo men. There are normal caliber loops seen in the right colon and pelvis. The findings are suspicious for persistent small bowel obstruction. FREE AIR: None. CALCIFICATIONS: No radiopaque calcifications. OSSEOUS STRUCTURES: Normal for age. OTHER FINDINGS: The nasogastric tube has been removed. IMPRESSION: Findings suggestive of a persistent small bowel obstruction. DATA REPOSITORY: RADIATION DOSE DELIVERED:
[2022-06-06 07:24] VITALS: BP 140/74; PULSE 73; RESP 16; TEMP 37.3; O2SAT 96
--- NOTE | 2022-06-06 07:46 | W.PM.PROGNOT ---
Date of Service Date of service: 06/06/22 Time of Service: 07:46 Assessment and Plan Assessment and plan (1) Small bowel obstruction: Status: Acute Assessment and plan: - Again patient is feeling better this evening. He is been up walking. And had multiple bowel movements. -I discussed with the patient and his the etiology of obstructions and adhesion formation after surgery. He and his are concerned because this bowel obstruction is different than all his previous bowel obstructions. We discussed that every obstruction can be different and there is no set pattern. I do feel he was rushing for discharge and we may have fed him too soon yesterday which contributed to his rebound symptoms. We will proceed slower with feeding at this point. I encouraged him to continue walking. He did have a colonoscopy in [address] Espinal which did not show any stricturing at the sigmoid rectal anastomosis. The anastomosis was noted to be widely patent on his recent CT on admission. (2) Colon polyps: Status: Acute (3) Hx of colonoscopy: Subjective Subjective Interval history since last seen: Evaluation at 7 AM. Pt has no abdominal pain today. He is passing gas today. He doeshave good BS. He needs to be up and walking this am. XR- pd Evaluation at 6 PM: Patient notes he had x3 bowel movements today. He has been up and walking. He is hungry. He notes he still is having some mild spasm-like pain in the left lower quadrant. Exam GI Other: Abdomen is soft with minimal tenderness in left lower quadrant. No distention. Good bowel sounds. No hernias. Objective Last Vital Signs Temp 37.3 C 06/06/22 07:24 Pulse 73 06/06/22 07:24 Resp 16 06/06/22 07:24 BP 140/74 06/06/22 07:24 Pulse Ox 96 06/06/22 07:24
[2022-06-06 11:45] VITALS: BP 136/76; PULSE 63; RESP 15; TEMP 36.9; O2SAT 99
--- NOTE | 2022-06-06 14:25 | PDOC.CMDIS ---
- If Service Date Differs Date of service: 06/06/22 Time of Service: 14:25 LACE Index Scoring Tool - Questions: Length of Stay (in days): 1 Acuity (Admit via E.D.?): Yes E.D. Visits: 2 - Answers: Total Score: 6 Risk of Readmission: Low Risk Care Management Discharge Reason for Hospitalization: Small bowel obstruction Discharge Plan: Feliciano will return home when ready per MD, no additional services anticipated at this time. He will follow up with his PCP, surgical services and his plan of care as prescribed, he will trasnport via private with his , Analisa. Patient/Family Education Needs: Review discharge instructions, discuss Ask Me Three.
[2022-06-06 15:45] VITALS: BP 137/72; PULSE 67; RESP 16; TEMP 36.7; O2SAT 98
[2022-06-06 20:31] VITALS: BP 149/83; PULSE 57; RESP 18; TEMP 37.1; O2SAT 98
[2022-06-06] MEDS: Enoxaparin 40 MG/0.4 ML SYR SC (21:43)
[2022-06-06] MEDS: Pantoprazole 40 MG VIAL IVP (21:44)
[2022-06-06 23:48] VITALS: BP 132/76; PULSE 64; RESP 16; TEMP 37.2; O2SAT 94
--- NOTE | 2022-06-07 | DI.RAD_ITS ---
Exam(s) RF SMALL BOWEL SERIES EXAM: RF SMALL BOWEL SERIES CLINICAL HISTORY: Obstruction vs partial obstruction TECHNIQUE: COMPARISON: CR XR ABDOMEN FLAT UPRIGHT from 06/06/2022 FINDINGS: Small bowel series was performed. Initial films show moderate small bowel dilatation. A mixture of barium and Gastrografin was ingested and shows moderate small bowel dilatation. Small bowel is dilat ed to the level of the distal portion of the ileum, where there is an apparent abnormal segment of th e ileum with fold deformity and narrowing, there is normal size terminal ileum distal to the aforemen tioned presumed transition zone. Barium reaches the terminal ileum approximately 8 hours post ingest ion of contrast material. IMPRESSION: Moderate to high-grade small-bowel obstruction at the level of the distal ileum. A presumed right lo wer quadrant transition zone is identified. RADIATION DOSE DELIVERED: Total DLP
[2022-06-07] MEDS: Hyoscyamine 0.125 MG SL/ORAL/CHEW PO ×2 (05:36→17:39)
[2022-06-07] MEDS: ACETAMINOPHEN 1,000 MG/100 ML BTL 400 MG IVPB ×2 (06:24→14:49)
[2022-06-07] MEDS: Lactated Ringers 1,000 ML 125 ML IV ×2 (07:01→17:40)
--- NOTE | 2022-06-07 07:25 | W.PM.PROGNOT ---
Date of Service Date of service: 06/07/22 Time of Service: 07:25 Assessment and Plan Assessment and plan (1) Small bowel obstruction: Status: Acute Assessment and plan: - Again patient is feeling better this evening. He is been up walking. And had multiple bowel movements. -He did have a colonoscopy [place] [address] Espinal which did not show any stricturing at the sigmoid rectal anastomosis. The anastomosis was noted to be widely patent on his recent CT on admission. -Will order a small bowel follow through to see if there is a narrowing (2) Colon polyps: Status: Acute (3) Hx of colonoscopy: Subjective Subjective Interval history since last seen: Mr. Acosta is doing OK. Pain is less. Still with some discomfort in the LLQ. Passing some flatus and BM's XRAY yesterday still showes dilated small intestine. Exam Const General: comfortable and no acute distress Orientation: alert and oriented x3 HENMT Head: normocephalic and atraumatic Resp Effort & Inspection: normal respiratory effort Auscultation: clear to auscultation bilaterally Cardio Rate: regular rate Rhythm: regular rhythm GI Palpation: soft, no hepatosplenomegaly and tender (mild LLQ) Auscultation: normoactive bowel sounds Objective Last Vital Signs Temp 99.0 F 06/06/22 23:48 Pulse 64 06/06/22 23:48 Resp 16 06/06/22 23:48 BP 132/76 06/06/22 23:48 Pulse Ox 94 06/06/22 23:48
[2022-06-07 07:55] VITALS: BP 147/83; PULSE 68; RESP 18; TEMP 36.8; O2SAT 95
[2022-06-07] MEDS: Barium Sulfate 60% W/V 355 ML BTL PO (11:05)
[2022-06-07] MEDS: Gastrografin 120 ML BTL PO (11:07)
[2022-06-07] MEDS: Normal Saline Flush 10 ML SYR IVP ×3 (11:08→22:01)
[2022-06-07] MEDS: Ketorolac 15 MG/ML VIAL IVP ×2 (11:08→17:39)
[2022-06-07 16:08] VITALS: BP 155/82; PULSE 58; RESP 18; TEMP 36.7; O2SAT 96
--- NOTE | 2022-06-07 17:25 | PDOC.CMPRO ---
- If Service Date Differs Date of service: 06/07/22 Time of Service: 17:25 Care Management Progress Note S/O: Feliciano was sitting up in his chair, visiting with his when CM met with him. He is alert, oriented and easy to engage in conversation. He requires additional monitoring and planning on having more testing this evening. A: 72 year old male admitted to [facility] on 06/05/22 for SBO. P: Feliciano is being followed by [facility]. Anticipate, he will discharge home via private vehicle with when medically ready. [facility] RN services will be ordered if indicated at the time of discharge. Feliciano will require close follow up with his PCP and [facility].
[2022-06-07] MEDS: Pantoprazole 40 MG VIAL IVP (21:58)
[2022-06-07] MEDS: Enoxaparin 40 MG/0.4 ML SYR SC (22:01)
[2022-06-08 00:30] VITALS: BP 140/74; PULSE 66; RESP 16; TEMP 36.7; O2SAT 95
[2022-06-08] MEDS: Lactated Ringers 1,000 ML 125 ML IV ×2 (02:42→21:41)
[2022-06-08] MEDS: Normal Saline Flush 10 ML SYR IVP ×2 (06:33→21:32)
[2022-06-08] MEDS: Ondansetron 4 MG/2 ML VIAL IVP (06:33)
--- NOTE | 2022-06-08 08:00 | DI.RAD_ITS ---
Exam(s) XR ABDOMEN FLAT UPRIGHT EXAM: 2D digital imaging was performed. CLINICAL HISTORY: follow up SBO. COMPARISON: CR XR ABDOMEN FLAT UPRIGHT from 06/06/2022 CR RF SMALL BOWEL SERIES from 06/07/2022 TECHNIQUE: Supine and uprightSupine and Lateral views of the abdomen was performed. Images were o btained. FINDINGS: LUNG BASES: Clear. BOWEL GAS PATTERN: There is a persistently dilated proximal and mid small bowel. The distal ileum an d colon are of normal caliber. The oral contrast has passed into the colon all the way to the rectum . A normal appendix is opacified. FREE AIR: None. CALCIFICATIONS: No radiopaque calcifications. OSSEOUS STRUCTURES: Normal for age. OTHER FINDINGS: None. IMPRESSION: Findings again seen of a small-bowel obstruction. DATA REPOSITORY: RADIATION DOSE DELIVERED:
[2022-06-08 08:42] VITALS: BP 145/79; PULSE 73; RESP 18; TEMP 37; O2SAT 98
--- NOTE | 2022-06-08 08:52 | PDOC.CMPRO ---
- If Service Date Differs Date of service: 06/08/22 Time of Service: 08:52 Care Management Progress Note S/O: Feliciano would like to transfer to [facility] and has discussed his case personally with Dr. Galvin. Dr. Galvin has agreed to take Feliciano in transfer when a bed is available. At this time [facility] is at capacity. Dr. Prince advised patient that the ambulance ride would not be covered by medicare. He understands and is still willing to go. CM will continue to follow. Feliciano expressed desire to discharge AMA, drive to [facility] with his and sit in their waiting room until a bed becomes available. Feliciano would like guidance as to whether this hospital stay would be covered if he were to leave AMA? CM is unable to determine AMA guidelines set by his insurance company and recommended that he call the number on the back of his insurance card for details. A: 72 year old male admitted to [facility] on 06/05/22 for SBO. P: Feliciano is being followed by [facility] at [facility] and has requested transfer to [facility]. Dr. Galvin has accepted this transfer request, pending bed availability. EMS transport is recommended, Feliciano understands that the ambulance ride is not covered by medicare.
--- NOTE | 2022-06-08 12:59 | PGE_ITS ---
Date of Service Date of service: 06/08/22 Time of Service: 13:03 Assessment and Plan Assessment and plan (1) Small bowel obstruction: Status: Acute Assessment and plan: - Again patient is feeling better this evening. He is been up walking. And had multiple bowel movements. -He did have a colonoscopy in [address] Espinal which did not show any stricturing at the sigmoid rectal anastomosis. The anastomosis was noted to be widely patent on his recent CT on admission. -Only a small amount of the gastrografin made through the TI into the large intestine. His small bowel is still dilated. I spend 35 minutes with him and his discussing options. At this point he isin day 5 without much improvement. I do not feel that his obstruction will resolve on its own. We discussed surgery. Patient would like to go and have surgery at [facility] with Dr. Galvin. He apparently did his first surgery when he had ruptured diverticulitis. I have left a message with the office of Dr. Galvin. Discussed With Cydney at Dr. Galvin's office. [facility] is at Capacity but she will see what she can do. I will have [facility] call Dr. Westfall as she is health information management director today though the weekend. I have let the patient know that there are no Beds at [facility] at this time. (2) Colon polyps: Status: Acute (3) Hx of colonoscopy: Subjective Subjective Interval history since last seen: Mr. Acosta is doing OK. Continues to have a small amount of flatus and liquid stool. XRay shows a small amount of contrast in the rectum, but his small bowel is still dilated. NO fevers Exam Const General: comfortable and no acute distress Orientation: alert and oriented x3 HENCO Head: normocephalic and atraumatic Resp Effort & Inspection: normal respiratory effort Auscultation: clear to auscultation bilaterally Cardio Rate: regular rate Rhythm: regular rhythm Objective Last Vital Signs Temp 98.6 F 06/08/22 08:42 Pulse 73 06/08/22 08:42 Resp 18 06/08/22 08:42 BP 145/79 H 06/08/22 08:42 Pulse Ox 98 06/08/22 08:42
[2022-06-08] MEDS: Calcium Carbonate *TUMS* 500 MG CHEW PO ×2 (13:32→19:29)
--- NOTE | 2022-06-08 13:37 | NS.NUTBLAN_ITS ---
Date of service: 06/08/22 Time of Service: 13:37 Nutritional Consult ASSESSMENT: Feliciano admitted with SBO, gut rest x 5 days with little improvement. Most likely will need surgical intervention, patients wants it done at [facility]. At this time, recommend TPN to support healthy immune function/maintaining lean body mass and optimal healing s/p surgery. Estimated Needs: [id number] kcal, 85 g protein, 2550 ml fluid NUTRITIONAL DIAGNOSIS: Inadequate nutrient intake secondary to gut rest for SBO, awaiting surgical intervention INTERVENTION: Recommend initiate TPN: Clinimix(01/22) 2000 ml run at 83 ml/hour with 250 ml 20% lipids run at 31.25 ml/hour providing total of 1990 kcal, 100 g protein, 55 g fat MONITORING AND EVALUATION: weight, po intake, labs Time Spent in Nutritional Counseling and Treatment: 0
--- NOTE | 2022-06-08 13:37 | W.PM.DS.N ---
Date of service: 06/08/22 Time of Service: 13:38 DS: Diagnosis Discharge Diagnosis (1) Small bowel obstruction: Status: Acute (2) Colon polyps: Status: Acute (3) Hx of colonoscopy: Discharge Plan Disposition Disposition: [facility] Condition: Serious Discharge Details Reason For Visit: Small Bowel Obstruction Admit Date/Time: 06/05/22 13:13 Admit Provider: Preethi Prince Attending Provider: Preethi Prince Primary Care Provider: Elfego [facility] Hospital Course: Mr. Acosta is a pleasant 72 year old male who was admitted on the afternoon of 06/05/22 with a small bowel obstruction. An NG tube was placed. By sunday morning he had started to pass a little flatus and a small amount of liquid stool. His NG tube was removed per patient request and he was started on some clear liquids. That evening he had some emesis. He was made NPO again. Follow up Xray showed continued dilated loops of bowel. He was given Gastrografin on 06/07 in the am. 3 hours later the contrast was still not in the colon. Xray the next morning revealed a small amount of gastrografin the large intestin and rectum, but most of it was still in the small bowel. His bowel was still dilated. Discussion with patient and his the day before regarding findings and the fact that he wasn't getting better. Surgery was recommended. Patient did not want to have surgery here and requested transfer to [facility]. He had been discussing his case with Dr. Galvin. Dr. aGlvin's office contacted for transfer. Once Bed available patient was transfered via ambulance. Discussed with patient that the ambulance ride would not be covered by medicare. He understands and is still willing to go. Home Meds and New Rx's Prescriptions: No Action ibuprofen 200 MG tablet 400 mg PO QID PRN PRN tadalafil 10 mg tablet See Rx Instructions .ROUTE .COMPLEX Label Comments: Take 1/2 to 1 tablet by mouth as needed about 1 hour prior to sexual activity Rx Instructions: Take 1/2 tab to 1 tab 30 minutes prior to intercourse fluocinolone 0.01 % solution See Rx Instructions .ROUTE .COMPLEX Label Comments: Apply 1 a small amount topical once a day as needed to scalp/ear when seborrhea inflamed Rx Instructions: Use 1 small amount with showering as needed for dry scalp Discharge Instructions Additional Instructions: CT Scan and Xrays placed on a CD for the patient. Labs, H&P and progress notes sent with patient DS: Summary Time Spent with Patient providing and/or coordinating discharge services: Greater than 30 minutes Status at Discharge Functional status at discharge: independent ambulation Overall status at discharge: patient is not back to baseline Mental Status: mental status grossly normal Speech and Movement: speech and movement normal Mood: congruent mood Affect: normal affect Exam Psych Mental Status: mental status grossly normal Speech and Movement: speech and movement normal Mood: congruent mood Affect: normal affect DS: Data Vitals/I&O Vitals and I&O: Vital Signs Temperature 98.6 F 06/08/22 08:42 Temperature Source Tympanic 06/08/22 08:42 Pulse 73 06/08/22 08:42 Pulse Rhythm Regular 06/08/22 10:43 Respiratory Rate 18 06/08/22 08:42 Respiratory Effort Non-Labored 06/08/22 10:43 Respiratory Depth Normal 06/08/22 10:43 Respiratory Pattern Normal 06/08/22 10:43 Blood Pressure 145/79 H 06/08/22 08:42 Blood Pressure Mean 98 06/04/22 18:00 Blood Pressure Position Sitting 06/04/22 15:25 Pulse Oximetry 98 06/08/22 08:42 Oxygen Delivery Method Room Air 06/08/22 08:42 Oxygen Flow Rate 0 06/08/22 08:42 Pain Level 2 06/08/22 08:42 Comment 06/07/22 07:55 Intake & Output 06/07/22 06/08/22 06/08/22 23:59 11:59 23:59 Intake Total 1100 / 2154.167 1000 / 1000 0 / 1000 Balance 1100 / 2154.167 1000 / 1000 0 / 1000 Intake: IV 1100 / 2154.167 1000 / 1000 0 / 1000 Other: Comment Voids independently; unmeasured pT voided independently Stool Size Moderate Stool Characteristics Liquid Voiding Methods Toilet Toilet PFSH All Active Problems Small bowel obstruction (Acute) Family history of prostate cancer (Acute) Kidney stone (Chronic) Colon polyps (Acute) Medical History Cervical arthritis Diverticulitis Surgical History History of colostomy reversal Colostomy take down 2006 History of fusion of cervical spine Hx of colectomy Sigmoid colectomy with Yolande's Pouch Hx of colonoscopy 05/15/19 Repeat in 2023 Social History Smoking/Tobacco Use Status: Former Tobacco Use Smoking risk assessment performed?: Yes Alcohol Intake: current Alcohol Intake frequency: a few times a week Drug use: Never Substance use type: marijuana Details: Edible marijuana for pain 10 days ago alchol 3 days ago, couple beers Do you feel safe at home: Yes Do you feel safe in your relationship?: Yes
[2022-06-08 15:38] VITALS: BP 157/84; PULSE 61; RESP 16; TEMP 36.9; O2SAT 98
[2022-06-08] MEDS: ACETAMINOPHEN 1,000 MG/100 ML BTL 400 MG IVPB ×2 (16:03→21:34)
[2022-06-08] MEDS: Pantoprazole 40 MG VIAL IVP (21:32)
[2022-06-08] MEDS: Enoxaparin 40 MG/0.4 ML SYR SC (21:35)
[2022-06-08 21:49] VITALS: BP 164/87; PULSE 61; RESP 12; TEMP 36.1; O2SAT 95
[2022-06-08 21:55] VITALS: BP 156/84
[2022-06-09] MEDS: ACETAMINOPHEN 1,000 MG/100 ML BTL 400 MG IVPB ×3 (06:15→21:34)
[2022-06-09 08:49] VITALS: BP 149/78; PULSE 56; RESP 18; TEMP 36.1; O2SAT 95
[2022-06-09] MEDS: Calcium Carbonate *TUMS* 500 MG CHEW PO (11:25)
[2022-06-09] MEDS: Lactated Ringers 1,000 ML 125 ML IV (11:26)
--- NOTE | 2022-06-09 15:34 | W.PM.PROGNOT ---
Date of Service Date of service: 06/09/22 Time of Service: 15:34 Assessment and Plan Assessment and plan (1) Partial intestinal obstruction due to peritoneal adhesions: Status: Acute Assessment and plan: -see Sm B follow thru. -no fever/peritonitis. -pt prefers to go to [facility] for Sx. awaiting bed placement. -supportive care -try sips of Ensure Clear (2) Diverticulitis: (3) History of colostomy reversal: (4) Hx of colectomy: Subjective Subjective Patient reports: blood in stool Interval history since last seen: Pt is doing well. no headaches. No CP or SOB. no productive cough. no dysuria. no leg pain or swelling. He has been tolerating sips as water. He is passing gas and liquid stool. Minimal abdominal cramping in LLQ. no temps. He has been walking His is concerned about his IV. There is no redness/swelling. Exam Resp Effort & Inspection: normal respiratory effort and able to speak in complete sentences Auscultation: clear to auscultation bilaterally Cardio Rate: regular rate Rhythm: regular rhythm GI Palpation: soft, no guarding, no hernias and tender in the LLQ (minimal ) Auscultation: normal bowel sounds Neuro General: patient alert, patient awake, patient oriented x3 and moves all extremities Extrem General: no clubbing, cyanosis or edema Objective Last Vital Signs Temp 36.1 C L 06/09/22 08:49 Pulse 56 L 06/09/22 08:49 Resp 18 06/09/22 08:49 BP 149/78 H 06/09/22 08:49 Pulse Ox 95 06/09/22 08:49
[2022-06-09 15:49] VITALS: BP 150/78; PULSE 59; RESP 18; TEMP 36.4; O2SAT 98
--- NOTE | 2022-06-09 15:53 | PDOC.CMPRO ---
- If Service Date Differs Date of service: 06/09/22 Time of Service: 14:00 Care Management Progress Note S/O: Feliciano is planning to discharge to [facility] as soon as there is bed availability. Feliciano personally discussed his case with Dr. Galvin at [facility] and is accepted in transfer pending bed availability. Per Feliciano, [facility] is still at capacity and he's getting notices that indicate they are in disaster mode. He has a call into [facility] to learn more about that code, plus inquire about an estimated time frame. Feliciano verbalizes understanding that an EMS ride will most likely not be covered by Medicare and that the surgical procedure he needs is able to be done here. Feliciano shares that the reason he wants to transfer to [facility] stems from his previous relationship with Dr. Galvin and the fact that Dr. Galvin does thousands of these complex surgeries a year. Feliciano is thinking about discharging AMA and having his Analisa drive him there vs. going by EMS. His has already contacted [facility], of he does decide to transport via EMS. In the meantime, Feliciano asked to request orders for repeat labs adal. his WBC count (to determine if he's getting sicker). He would also like to talk with the surgery about nutrition and risks associated with travel. notified Dr. Westfall. He also wants his medical records faxed to [facility]. Request of records form signed, and faxed to medical records. will continue to follow. A: 72 year old male admitted to [facility] on 06/05/22 for SBO. P: Feliciano is being followed by [facility] at [facility] and has requested transfer to [facility]. Dr. Galvin has accepted Feliciano, pending bed availability. EMS transport is recommended, Feliciano understands that the ambulance ride is not covered by medicare as this is an elective transfer. Feliciano is considering discharging AMA in order for Analisa to drive him there vs. going by EMS as recommended. His has already contacted [facility], in the event he does want to go by ambulance.
[2022-06-09] MEDS: Pantoprazole 40 MG VIAL IVP (21:35)
[2022-06-09] MEDS: Enoxaparin 40 MG/0.4 ML SYR SC (21:36)
[2022-06-09] MEDS: Normal Saline Flush 10 ML SYR IVP (21:37)
[2022-06-09 23:01] VITALS: BP 146/79; PULSE 55; RESP 19; TEMP 36.7; O2SAT 96
[2022-06-10] MEDS: Lactated Ringers 1,000 ML 75 ML IV ×2 (00:08→13:29)
[2022-06-10] MEDS: ACETAMINOPHEN 1,000 MG/100 ML BTL 400 MG IVPB ×2 (06:24→13:38)
[2022-06-10 08:11] VITALS: BP 159/84; PULSE 66; RESP 14; TEMP 36.5; O2SAT 97
[2022-06-10] MEDS: Calcium Carbonate *TUMS* 500 MG CHEW PO ×2 (08:40→13:42)
[2022-06-10] MEDS: Ketorolac 15 MG/ML VIAL IVP (09:54)
--- NOTE | 2022-06-10 12:14 | W.PM.PROGNOT ---
Date of Service Date of service: 06/10/22 Time of Service: 12:14 Assessment and Plan Assessment and plan (1) Small bowel obstruction: Status: Acute Assessment and plan: Generally, the pattern of the symptoms are reassuring, but I do not think he will have resolution of his bowel obstruction without surgical intervention. He prefers to wait for transfer to [facility]. Currently, there are no beds available. I will order a basic metabolic panel and CBC again today to ensure there is no leukocytosis, and to assess his electrolytes since he remains basically n.p.o. If we do not make any progress through the weekend, he may need to have consideration for total parenteral nutrition since he will be approaching at least 1 full week without meaningful nutrition. Subjective Subjective Interval history since last seen: He was feeling a little bit better yesterday through the evening time. Diet was advanced to a little more clears, which left him feeling some abdominal discomfort and a sense of bloating. He is continuing to pass some liquidy bowel movements and diarrhea. He is also had a little more back discomfort through the night. He got some Toradol this morning that helped with both abdominal and back discomfort. Exam GI Inspection: non-distended Palpation: soft, no guarding and nontender Percussion: normal to percussion Objective Last Vital Signs Temp 97.7 F 06/10/22 08:11 Pulse 66 06/10/22 08:11 Resp 14 06/10/22 08:11 BP 159/84 H 06/10/22 08:11 Pulse Ox 97 06/10/22 08:11
--- NOTE | 2022-06-10 14:31 | NUR.NOTE ---
Nursing Note:Report given Dorian WEEKS at [facility]. Transportation currently being arranged. Bed is available. is aware. Jose WEEKS,BSN
--- NOTE | 2022-06-10 15:12 | NUR.NOTE ---
at bedside taken belongings pt transferred to [facility] via ambulance. Rayray WEEKS,BSNNursing Note:
--- NOTE | 2022-06-10 15:37 | CMDISCH_ITS ---
- If Service Date Differs Date of service: 06/10/22 Time of Service: 15:37 LACE Index Scoring Tool - Questions: Length of Stay (in days): 4 - 6 Acuity (Admit via E.D.?): Yes E.D. Visits: 2 - Answers: Total Score: 9 Risk of Readmission: Low Risk Care Management Discharge Reason for Hospitalization: Small bowel obstruction Discharge Plan: Feliciano was transferred to [facility] today for surgical intervention of his bowel obstruction. He advocated for transfer, as he has had surgery there prior. After an MD to MD conversation, he was accepted in transfer. He will transport via EMS, coordinated by RN building insulation supervisor. He will follow up with his PCP and discharge plan of care. He is agreeable to transfer, and is happy to be accepted to [facility]. Patient/Family Education Needs: Review discharge instructions and limitations, discussion of self care needs inlcuding ask me three. Services Needed at Discharge: Transportation (EMS transport)
== END 2022-06-10 15:12 | DRG 390 ==
LOC: ER 19:09 → MS 21:24
PROVIDERS: Admitting Provider Surgery; Emergency Provider Physician Assistant; PCP Family Medicine; Visit Provider Surgery
DX: K56.609 Unspecified intestinal obstruction, unspecified as to partial versus complete obstruction (principal); N20.0 Calculus of kidney; Z80.42 Family history of malignant neoplasm of prostate; Z86.010 Personal history of colon polyps; Z90.49 Acquired absence of other specified parts of digestive tract; Z98.0 Intestinal bypass and anastomosis status; Z87.891 Personal history of nicotine dependence
CPT/HCPCS: 36415; 80048; 80053; 83690; 87635; 93005; 96361; 96374; 96375; 96376; 99220; 99231; 99232; 99233; 99238; 99285; J1650; 74018; 74019; 74177; 74250; 81003; 81015; 83605; 83735; 84484; 85025; 93010; G0378; J0131; J1885; J2270; J2405; J3490

== ENCOUNTER 2023-03-22 01:46 | Outpatient (CLI) | payer MEDICARE, SELFPAY ==
--- NOTE | 2023-03-22 14:20 | DI.RAD_ITS ---
Exam(s) XR ABDOMEN FLAT PLATE EXAM: XR ABDOMEN FLAT PLATE CLINICAL HISTORY: monitoring renal calculi,z87.442. TECHNIQUE: 2D digital imaging was performed. COMPARISON: CR XR ABDOMEN FLAT UPRIGHT from 06/08/2022 FINDINGS: AP supine view the abdomen. Bowel gas pattern exhibits air in the colon including the splenic flexure. Difficult to determine if there is free air as there does not appear to be an obvious upright image. No obvious pneumatosis. Phleboliths are noted in the right-side of the pelvis. Regional bones unremarkable. IMPRESSION: Air seen in the colon. DATA REPOSITORY: RADIATION DOSE DELIVERED:
[2023-03-22 22:19] LABS: PSA, Screening 2.2 ng/mL (<=6.5)
== END 2023-03-22 02:06 ==
LOC: DI 01:46
PROVIDERS: PCP Family Medicine; Visit Provider Nurse Practitioner Gerontology
DX: Z87.442 Personal history of urinary calculi (principal); N13.8 Other obstructive and reflux uropathy; N40.1 Benign prostatic hyperplasia with lower urinary tract symptoms; Z80.42 Family history of malignant neoplasm of prostate; Z12.5 Encounter for screening for malignant neoplasm of prostate
CPT/HCPCS: 36415; 84153; 74018

== ENCOUNTER → 2023-03-29 14:47 | Outpatient (BNVA) | payer MEDICARE, SELFPAY | PROVIDERS: PCP Family Medicine; Visit Provider Nurse Practitioner Gerontology | DX: N20.0 Calculus of kidney (principal); Z80.42 Family history of malignant neoplasm of prostate | CPT/HCPCS: 99213 ==

== ENCOUNTER 2023-04-12 18:41 | Outpatient (REF) | payer MEDICARE, SELFPAY ==
[2023-04-12 15:57] LABS: HCT 49.1 % (40.0-50.0); HGB 16.2 g/dL (13.5-17.5); MCH 31.1 pg (27.0-33.0); MCV 94 fL (80-95); MPV 12.6 fL (8.0-11.0); Platelet Count 130 10^3/uL (130-400); RBC 5.21 10^6/uL (4.36-5.78); RDW 12.8 % (11.8-14.1); RDW-SD 43.9 fL; WBC 6.44 10^3/uL (4.4-10.8)
[2023-04-12 16:24] LABS: ALT 42 U/L (16-63); AST 33 U/L (15-37); Albumin 4.5 g/dL (3.4-5.0); Alkaline Phosphatase 51 U/L (46-116); Anion Gap 8.3 mmol/L (3-11); BUN 14 mg/dL (7-18); Bilirubin, Total 0.8 mg/dL (0.2-1.0); CO2 28.7 mmol/L (21.0-32.0); Calcium 9.4 mg/dL (8.5-10.1); Calculated LDL 109 mg/dL (<100); Chloride 105 mmol/L (98-107); Cholesterol 204 mg/dL (<200); Estimated GFR 80.47 (mL/min/1.73m2); Glucose 104 mg/dL (74-106); HDL Cholesterol 74 mg/dL (40-60); Potassium 4.7 mmol/L (3.5-5.1); Sodium 142 mmol/L (136-145); Total Protein 7.8 g/dL (6.4-8.2); Triglyceride 106 mg/dL (<150)
== END 2023-04-12 18:42 | disposition home or self-care (01) ==
LOC: LBN 18:41
PROVIDERS: PCP Family Medicine; Visit Provider Family Medicine
DX: N28.9 Disorder of kidney and ureter, unspecified (principal); D69.6 Thrombocytopenia, unspecified; E78.5 Hyperlipidemia, unspecified
CPT/HCPCS: 80053; 80061; 85027

== ENCOUNTER 2024-03-20 00:52 | Outpatient (CLI) | payer MEDICARE, SELFPAY ==
[2024-03-21 10:07] LABS: PSA, Diagnostic 2.2 ng/mL (<=6.5)
== END 2024-03-20 00:53 | disposition home or self-care (01) ==
LOC: LBO 00:53
PROVIDERS: PCP Family Medicine; Visit Provider Nurse Practitioner Gerontology
DX: N40.1 Benign prostatic hyperplasia with lower urinary tract symptoms (principal); Z80.42 Family history of malignant neoplasm of prostate
CPT/HCPCS: 36415; 84153

== ENCOUNTER → 2024-04-02 08:37 | Outpatient (BNVA) | payer MEDICARE, SELFPAY | PROVIDERS: PCP Family Medicine; Visit Provider Nurse Practitioner Gerontology | DX: N40.1 Benign prostatic hyperplasia with lower urinary tract symptoms (principal); N13.8 Other obstructive and reflux uropathy; N20.0 Calculus of kidney; Z80.42 Family history of malignant neoplasm of prostate | CPT/HCPCS: 51798; 99213 ==

== ENCOUNTER → 2024-07-02 09:26 | Outpatient (BNVA) | payer MEDICARE, SELFPAY | PROVIDERS: PCP Family Medicine; Referring Provider Family Medicine; Visit Provider Nurse Practitioner Gerontology | DX: N40.1 Benign prostatic hyperplasia with lower urinary tract symptoms (principal); N13.8 Other obstructive and reflux uropathy; N20.0 Calculus of kidney; Z80.42 Family history of malignant neoplasm of prostate | CPT/HCPCS: 51798; 99213 ==

== ENCOUNTER 2025-03-11 21:42 | Outpatient (REF) | payer MEDICARE, SELFPAY ==
[2025-03-11 14:58] LABS: HCT 45.2 % (40.0-50.0); HGB 14.8 g/dL (13.5-17.5); MCH 30.1 pg (27.0-33.0); MCHC 32.7 % (32.0-36.0); MCV 92 fL (80-95); MPV 12.9 fL (8.0-11.0); RBC 4.91 10^6/uL (4.36-5.78); RDW 13.3 % (11.8-14.1); RDW-SD 45.4 fL; WBC 6.23 10^3/uL (4.4-10.8)
[2025-03-11 15:13] LABS: Platelet Count 93 10^3/uL (130-400)
[2025-03-11 15:21] LABS: ALT 54 U/L (16-63); AST 54 U/L (15-37); Albumin 4.3 g/dL (3.4-5.0); Alkaline Phosphatase 54 U/L (46-116); Amylase 61 U/L (25-115); Anion Gap 9.1 mmol/L (3-11); BUN 13 mg/dL (7-18); Bilirubin, Total 0.9 mg/dL (0.2-1.0); CO2 27.9 mmol/L (21.0-32.0); Calcium 9.0 mg/dL (8.5-10.1); Chloride 105 mmol/L (98-107); Estimated GFR 90.74 (mL/min/1.73m2); Glucose 95 mg/dL (74-106); Lipase 36 U/L (<78); Potassium 4.1 mmol/L (3.5-5.1); Sodium 142 mmol/L (136-145); Total Protein 7.7 g/dL (6.4-8.2)
== END 2025-03-11 21:43 | disposition home or self-care (01) ==
LOC: NCHCN 21:42
PROVIDERS: PCP Family Medicine; Visit Provider Family Medicine
DX: R10.84 Generalized abdominal pain (principal)
CPT/HCPCS: 80053; 83690; 85027; 82150

== ENCOUNTER 2025-04-02 02:34 | Outpatient (CLI) | payer MEDICARE, SELFPAY ==
[2025-04-02 17:50] LABS: PSA, Diagnostic 2.1 ng/mL (<=6.5)
== END 2025-04-02 02:35 | disposition home or self-care (01) ==
LOC: LBO 02:34
PROVIDERS: PCP Family Medicine; Visit Provider Nurse Practitioner Gerontology
DX: N13.8 Other obstructive and reflux uropathy (principal); N40.1 Benign prostatic hyperplasia with lower urinary tract symptoms; Z80.42 Family history of malignant neoplasm of prostate; N20.0 Calculus of kidney
CPT/HCPCS: 36415; 84153

== ENCOUNTER → 2025-04-08 15:00 | Outpatient (BNVA) | payer MEDICARE, SELFPAY | PROVIDERS: PCP Family Medicine; Referring Provider Family Medicine; Visit Provider Nurse Practitioner Gerontology | DX: N40.1 Benign prostatic hyperplasia with lower urinary tract symptoms (principal); N13.8 Other obstructive and reflux uropathy; N20.0 Calculus of kidney; Z80.42 Family history of malignant neoplasm of prostate | CPT/HCPCS: 99214; 51798 ==

== ENCOUNTER 2025-07-08 01:30 | Outpatient (CLI) | payer MEDICARE, SELFPAY ==
--- NOTE | 2025-07-08 06:45 | DI.US_ITS ---
Exam(s) US SCROTUM EXAM: US SCROTUM CLINICAL HISTORY: Scrotal mass, area felt to right,N50.89 TECHNIQUE: Ultrasound of the testes performed using grayscale, color, and Doppler imaging. COMPARISON: US US RENAL from 03/09/2022 FINDINGS: RIGHT HEMISCROTUM: The right testicle exhibits normal size and echo architecture with no evidence of intratesticular mass. Vascular flow was demonstrated within the right testicle, including arterial waveforms. There is a large right sided spermatocele corresponding to the palpable area of concern. This measures 6 x 5 x 2.2 cm. There are 2 other smaller right-sided hydrocele measuring 13 x 7 x 12 mm and 8 x 5 by 10 mm There is a small right-sided hydrocele. LEFT HEMISCROTUM: The left testicle exhibits normal size and echo architecture with no evidence of intratesticular mass. Vascular flow is demonstrated within the left testicle, including arterial waveforms. The epididymis appears unremarkable. There are no epididymal head cysts. There is a moderate size left-sided hydrocele which measures 5.3 x 1.6 x 3.0 cm. IMPRESSION: 1. No evidence of testicular mass nor testicular torsion. 2. Large right-sided hydrocele measuring 6 x 5 x 2.2 cm. There also 2 smaller see lateral hydroceles measurements as above. 3. Bilateral hydroceles also noted. DATA REPOSITORY:
== END 2025-07-08 01:50 ==
LOC: DI 01:30
PROVIDERS: PCP Family Medicine; Visit Provider Nurse Practitioner Gerontology
DX: N50.89 Other specified disorders of the male genital organs (principal); N43.3 Hydrocele, unspecified
CPT/HCPCS: 76870

== ENCOUNTER → 2025-07-15 14:00 | Outpatient (BNVA) | payer MEDICARE, SELFPAY | PROVIDERS: PCP Family Medicine; Referring Provider Family Medicine; Visit Provider Nurse Practitioner Gerontology | DX: N40.1 Benign prostatic hyperplasia with lower urinary tract symptoms (principal); N13.8 Other obstructive and reflux uropathy; N20.0 Calculus of kidney; Z80.42 Family history of malignant neoplasm of prostate; R33.9 Retention of urine, unspecified; R39.9 Unspecified symptoms and signs involving the genitourinary system; N43.41 Spermatocele of epididymis, single; N43.3 Hydrocele, unspecified | CPT/HCPCS: 99214; 51798 ==

== ENCOUNTER → 2025-08-12 01:21 | Outpatient (CLI) | payer MEDICARE, SELFPAY ==
--- NOTE | 2025-08-12 08:30 | DI.US_ITS ---
Exam(s) US RENAL EXAM: US RENAL CLINICAL HISTORY: elevated PVR, ? hydro,bph with luts,incomplete bladder emptying TECHNIQUE: Ultrasound of both kidneys performed using standard protocol. COMPARISON: CT CT ABD/PELVIS W CONTRAST from 03/12/2025 (outside institution CT study) FINDINGS: RIGHT KIDNEY: Measures 12.7 cm in length. There is a parapelvic cyst measuring 1.6 x 1.5 cm. There are no solid masses in the right kidney. There are echogenic foci consistent with nonobstructive calculi measuring 6 and 9 mm in the mid and upper pole levels. No obvious caliectasis. . LEFT KIDNEY: Measures 11.1 cm in length. No cysts evident. Normal cortical thickness and corticomedullary differentiation. No solids masses. There 2 small echogenic calculi in the left kidney, both measuring 3 mm, these in the mid and lower pole levels. No hydronephrosis. URINARY BLADDER: Prevoid volume is 454 cc Postvoid volume is 79 cc No evidence of bladder mass nor diverticuli. Ureterovesical jets: Both identified and appear symmetrical The prostate gland is enlarged. Prostate gland measures 5.3 cm wide with volume of 32.7 cc. IMPRESSION: 1. There presently bilateral nonobstructive calculi in both kidneys as described above. There is no hydronephrosis on either side at this time and both ureterovesical jets were identified at the level the urinary bladder. There are no calculi evident within the urinary bladder lumen. 2. There is increased postvoid residual volume in the urinary bladder (79 cc). This is most probably related to the enlarged prostate gland. There are no obvious masses nor diverticuli in the bladder. DATA REPOSITORY:
== END ==
PROVIDERS: PCP Family Medicine; Visit Provider Nurse Practitioner Gerontology
DX: N40.1 Benign prostatic hyperplasia with lower urinary tract symptoms (principal); N13.8 Other obstructive and reflux uropathy; R33.9 Retention of urine, unspecified
CPT/HCPCS: 76770